=== PATIENT | female | born 1960 | race Asian ===

== ENCOUNTER → 2018-04-07 07:26 | Outpatient (CLI) | payer OTHER, SELFPAY ==
[2018-04-07 07:57] LABS: Add Manual Diff / Slide Review NO; Basophils Percent Auto 0.6 % (0-2); Eosinophils Percent Auto 1.1 % (2-4); Hematocrit 38.1 % (36-46); Hemoglobin 12.1 g/dL (12.0-16.0); Lymphocytes Percent Auto 40.9 % (25-40); Mean Corpuscular HGB Conc 31.8 % (30-36); Mean Corpuscular Hemoglobin 21.6 PG (26-34); Mean Corpuscular Volume 67.9 fL (80-100); Monocytes Percent Auto 9.7 % (3-14); Neutrophils Absolute Auto 2300 /uL (3000-5900); Neutrophils Percent Auto 47.7 % (50-75); Platelet Count 332 X10^3/uL (150-400); Red Blood Cell Count 5.61 X10^6/uL (4.0-5.2); Red Cell Distribution Width 14.7 % (11.6-14.8); White Blood Cell Count 4.8 X10^3/uL (4.5-11.0)
[2018-04-07 08:17] LABS: Microcytosis 1+; Ovalocytes 1+
[2018-04-07 08:55] LABS: Alanine Aminotransferase 39 IU/L (9-52); Albumin 4.5 g/dL (3.5-5.0); Albumin Globulin Ratio 1.5 (1.0-2.8); Alkaline Phosphatase 88 U/L (38-126); Aspartate Aminotransferase 30 IU/L (14-36); Bilirubin Total 0.6 mg/dL (0.2-1.3); Blood Urea Nitrogen 12 mg/dL (7-17); Calcium 9.9 mg/dL (8.4-10.2); Carbon Dioxide 28 mmol/L (22-32); Chloride 99 mmol/L (98-107); Cholesterol 247 mg/dL (140-199); Estimated Glomerular Filt Rate > 60.0 mL/min (>60); Globulin 3.1 g/dL (1.7-4.1); Glucose 98 mg/dL (70-100); HDL Cholesterol 62 mg/dL (40-60); HEMOLYSIS < 15 (0-50); LDL Cholesterol Calculated 170 mg/dL (<100); Potassium 4.5 mmol/L (3.4-5.1); Sodium 140 mmol/L (137-145); Total Protein 7.6 g/dL (6.3-8.2); Triglycerides 74 mg/dL (35-150)
== END ==
PROVIDERS: PCP Family Medicine; Visit Provider Family Medicine
DX: E78.5 Hyperlipidemia, unspecified (principal); Z13.220 Encounter for screening for lipoid disorders; D64.9 Anemia, unspecified
CPT/HCPCS: 36415; 80053; 80061; 85025

== ENCOUNTER → 2019-03-21 07:39 | Outpatient (CLI) | payer OTHER, SELFPAY ==
--- NOTE | 2019-03-21 | DI.MG.S_ITS ---
BILATERAL DIGITAL SCREENING MAMMOGRAM 3D/2D WITH CAD: 03/21/2019 CLINICAL: Routine screening. Comparison is made to exams dated: 11/30/2017 mammogram, 09/24/2016 mammogram, 09/04/2015 mammogram, 12/16/2014 mammogram, and 12/10/2013 mammogram - [facility]. The tissue of both breasts is heterogeneously dense. This may lower the sensitivity of mammography. Current study was also evaluated with a Computer Aided Detection (CAD) system. No significant masses, calcifications, or other findings are seen in either breast. There has been no significant interval change. IMPRESSION: NEGATIVE There is no mammographic evidence of malignancy. A 1 year screening mammogram is recommended. This exam was interpreted at Station ID: [id number]. NOTE: For mammograms, a report in lay terms will be sent to the patient. Approximately 15% of breast malignancies will not be visualized mammographically. In the management of a palpable breast mass, a negative mammogram must not discourage biopsy of a clinically suspicious lesion. Electronically Signed By: Justin herrera/michelle:03/23/2019 13:25:28 letter sent: Normal Exam ACR BI-RADS Category 1: Negative 3341F
[2019-03-21 10:18] LABS: Basophils Absolute Auto 100 /uL (0-100); Eosinophils Absolute Auto 100 /uL (0-450); Eosinophils Percent Auto 1.1 % (2-4); Hematocrit 40.1 % (36-46); Hemoglobin 12.4 g/dL (12.0-16.0); Lymphocytes Absolute Auto 2100 /uL (1100-4500); Lymphocytes Percent Auto 39.6 % (25-40); Mean Corpuscular HGB Conc 30.8 % (30-36); Mean Corpuscular Hemoglobin 21.1 PG (26-34); Mean Corpuscular Volume 68.4 fL (80-100); Monocytes Absolute Auto 500 /uL (0-900); Monocytes Percent Auto 9.3 % (3-14); Neutrophils Absolute Auto 2600 /uL (1500-7000); Platelet Count 325 X10^3/uL (150-400); Red Blood Cell Count 5.86 X10^6/uL (4.0-5.2); Red Cell Distribution Width 14.9 % (11.6-14.8); White Blood Cell Count 5.2 X10^3/uL (4.5-11.0)
[2019-03-21 10:50] LABS: Alanine Aminotransferase 29 IU/L (9-52); Albumin 4.5 g/dL (3.5-5.0); Albumin Globulin Ratio 1.5 (1.0-2.8); Alkaline Phosphatase 83 U/L (38-126); Aspartate Aminotransferase 28 IU/L (14-36); Bilirubin Total 0.7 mg/dL (0.2-1.3); Blood Urea Nitrogen 15 mg/dL (7-17); Calcium 9.7 mg/dL (8.4-10.2); Carbon Dioxide 31 mmol/L (22-32); Chloride 104 mmol/L (98-107); Cholesterol 223 mg/dL (140-199); Estimated Glomerular Filt Rate > 60.0 mL/min (>60); Glucose 93 mg/dL (70-100); HDL Cholesterol 59 mg/dL (40-60); HEMOLYSIS < 15 (0-50); LDL Cholesterol Calculated 150 mg/dL (<100); Potassium 4.4 mmol/L (3.4-5.1); Sodium 142 mmol/L (137-145); Total Protein 7.5 g/dL (6.3-8.2); Triglycerides 70 mg/dL (35-150)
[2019-03-21 10:58] LABS: Add Manual Diff / Slide Review SLIDE REVIEW
[2019-03-21 11:46] LABS: Hypochromasia 2+; Microcytosis 1+
== END ==
PROVIDERS: PCP Hospitalist; Visit Provider Hospitalist
DX: Z12.31 Encounter for screening mammogram for malignant neoplasm of breast (principal); E78.00 Pure hypercholesterolemia, unspecified
CPT/HCPCS: 36415; 77063; 77067; 80053; 80061; 85025

== ENCOUNTER → 2019-11-12 09:20 | Outpatient (CLI) | payer OTHER, SELFPAY ==
[2019-11-12 10:24] LABS: Cholesterol 245 mg/dL (140-199); HDL Cholesterol 51 mg/dL (40-60); LDL Cholesterol Calculated 182 mg/dL (<100); Triglycerides 60 mg/dL (35-150)
== END ==
PROVIDERS: PCP Hospitalist; Referring Provider Family Medicine; Visit Provider Family Medicine
DX: E78.00 Pure hypercholesterolemia, unspecified (principal); Z76.89 Persons encountering health services in other specified circumstances
CPT/HCPCS: 36415; 80061

== ENCOUNTER → 2020-05-02 13:39 | Outpatient (CLI) | payer OTHER, SELFPAY ==
--- NOTE | 2020-05-02 | DI.MG.S_ITS ---
BILATERAL DIGITAL SCREENING MAMMOGRAM 3D/2D WITH CAD: 05/02/2020 CLINICAL: Routine screening. Comparison is made to exams dated: 03/21/2019 mammogram, 11/30/2017 mammogram, and 09/24/2016 mammogram - [facility]. The tissue of both breasts is heterogeneously dense. This may lower the sensitivity of mammography. Current study was also evaluated with a Computer Aided Detection (CAD) system. There is a possible 9 mm mass in the right breast at 6 o'clock anterior depth. This is increased in size. No other significant masses, calcifications, or other findings are seen in either breast. IMPRESSION: INCOMPLETE: NEEDS ADDITIONAL IMAGING EVALUATION The possible 9 mm mass in the right breast is indeterminate. Additional views with possible ultrasound are recommended. This exam was interpreted at Station ID: [id number]. NOTE: For mammograms, a report in lay terms will be sent to the patient. Approximately 15% of breast malignancies will not be visualized mammographically. In the management of a palpable breast mass, a negative mammogram must not discourage biopsy of a clinically suspicious lesion. Electronically Signed By: Robert trejo/michelle:05/02/2020 15:22:00 letter sent: Additional Imaging Needed ACR BI-RADS Category 0: Incomplete 3340F
== END ==
PROVIDERS: PCP Family Medicine; Referring Provider Family Medicine; Visit Provider Family Medicine
DX: Z12.31 Encounter for screening mammogram for malignant neoplasm of breast (principal)
CPT/HCPCS: 77063; 77067

== ENCOUNTER → 2020-05-30 13:49 | Outpatient (CLI) | payer OTHER, SELFPAY ==
--- NOTE | 2020-05-30 13:57 | DI.MG.S_ITS ---
Patient Name: KG IXAO date: 1960 Sex: F Attending Physician: Ilya Indications: Date: 05/30/2020 13:55 At the request of: TINA MENA Procedure: MM special view RT UNILATERAL RIGHT DIGITAL DIAGNOSTIC MAMMOGRAM 3D/2D WITH ADDITIONAL VIEWS: 05/30/2020 CLINICAL: Additional evaluation requested from prior study. Comparison is made to exams dated: 05/02/2020 mammogram, 03/21/2019 mammogram, and 11/30/2017 mammogram - [facility]. The tissue of right breast is heterogeneously dense. This may lower the sensitivity of mammography. The previously described possible 0.8 cm oval equal density mass in the right breast at 6 o'clock anterior depth is seen in additional views. This is not significantly changed from recent screening mammogram but appears slightly more conspicuous compared to previous years. No other significant masses or calcifications are seen in the breast. IMPRESSION: INCOMPLETE: NEEDS ADDITIONAL IMAGING EVALUATION The 0.8 cm oval equal density mass in the right breast is indeterminate. An ultrasound is recommended for further evaluation and is scheduled to immediately follow this study. This exam was interpreted at Station ID: [id number]. NOTE: For mammograms, a report in lay terms will be sent to the patient. Approximately 15% of breast malignancies will not be visualized mammographically. In the management of a palpable breast mass, a negative mammogram must not discourage biopsy of a clinically suspicious lesion. Electronically Signed By: Donald Villalobos M.D. aty/:05/30/2020 14:09:41 Continued Report - Page 2 of 2 Patient Name: KG XIAO date: 1960 Sex: F Attending Physician: Ilya Indications: Date: 05/30/2020 13:55 At the request of: TINA MENA Procedure: MM special view RT ACR BI-RADS Category 0: Incomplete 3340F
--- NOTE | 2020-05-30 14:16 | DI.MG.S_ITS ---
Patient Name: KG XIAO date: 1960 Sex: F Attending Physician: Ilya Indications: Date: 05/30/2020 14:25 At the request of: TINA MENA Procedure: US breast RT limited ULTRASOUND OF RIGHT BREAST: 05/30/2020 CLINICAL: Patient returns today to evaluate a density in the right breast. Comparison is made to exams dated: 05/30/2020 mammogram, 05/02/2020 mammogram, 03/21/2019 mammogram, 11/30/2017 mammogram, 09/24/2016 mammogram, and 09/04/2015 mammogram - [facility]. Color flow and real-time ultrasound of the right breast were performed. Gandhi scale images of the realtime examination were reviewed. There is a benign 1.8 cm x 0.8 cm x 0.6 cm oval cyst in the right breast at 5 o'clock anterior depth. This oval cyst is anechoic with posterior acoustic enhancement. This correlates with mammography findings. Color flow imaging demonstrates that there is no vascularity present. IMPRESSION: BENIGN There is no sonographic evidence of malignancy. The 1.8 cm x 0.8 cm x 0.6 cm oval simple cyst in the right breast is benign. A 1 year screening mammogram is recommended. Findings and recommendations were conveyed to the patient during today's visit. This exam was interpreted at Station ID: [id number]. Electronically Signed By: Donald Villalobos M.D. aty/:05/30/2020 14:35:23 Continued Report - Page 2 of 2 Patient Name: KG XIAO date: 1960 Sex: F Attending Physician: Ilya Indications: Date: 05/30/2020 14:25 At the request of: TINA MENA Procedure: US breast RT limited letter sent: Normal Exam Ultrasound BI-RADS: 2 Benign
--- NOTE | 2020-06-30 14:16 | DI.ECHO.S_ITS ---
Patient Name: KG XIAO date: 1960 Sex: F Attending Physician: Ilya Indications: Date: 05/30/2020 14:25 At the request of: TINA MENA Procedure: US breast RT limited ULTRASOUND OF RIGHT BREAST: 05/30/2020 CLINICAL: Patient returns today to evaluate a density in the right breast. Comparison is made to exams dated: 05/30/2020 mammogram, 05/02/2020 mammogram, 03/21/2019 mammogram, 11/30/2017 mammogram, 09/24/2016 mammogram, and 09/04/2015 mammogram - [facility]. Color flow and real-time ultrasound of the right breast were performed. Gandhi scale images of the realtime examination were reviewed. There is a benign 1.8 cm x 0.8 cm x 0.6 cm oval cyst in the right breast at 5 o'clock anterior depth. This oval cyst is anechoic with posterior acoustic enhancement. This correlates with mammography findings. Color flow imaging demonstrates that there is no vascularity present. IMPRESSION: BENIGN There is no sonographic evidence of malignancy. The 1.8 cm x 0.8 cm x 0.6 cm oval simple cyst in the right breast is benign. A 1 year screening mammogram is recommended. Findings and recommendations were conveyed to the patient during today's visit. This exam was interpreted at Station ID: [id number]. Electronically Signed By: Donald Villalobos M.D. aty/:05/30/2020 14:35:23 Continued Report - Page 2 of 2 Patient Name: KG XIAO date: 1960 Sex: F Attending Physician: Ilya Indications: Date: 05/30/2020 14:25 At the request of: TINA MENA Procedure: US breast RT limited letter sent: Normal Exam Ultrasound BI-RADS: 2 Benign
== END ==
PROVIDERS: PCP Family Medicine; Referring Provider Family Medicine; Visit Provider Family Medicine
DX: R92.8 Other abnormal and inconclusive findings on diagnostic imaging of breast (principal); N60.01 Solitary cyst of right breast
CPT/HCPCS: 76642; 77065; G0279

== ENCOUNTER → 2020-07-02 16:09 | Outpatient (CLI) | payer OTHER, SELFPAY ==
[2020-07-02 16:38] LABS: Add Manual Diff / Slide Review NO; Basophils Absolute Auto 100 /uL (0-100); Basophils Percent Auto 0.8 % (0-2); Eosinophils Absolute Auto 100 /uL (0-450); Eosinophils Percent Auto 1.8 % (2-4); Hematocrit 37.3 % (36-46); Hemoglobin 11.6 g/dL (12.0-16.0); Lymphocytes Absolute Auto 2900 /uL (1100-4500); Lymphocytes Percent Auto 44.3 % (25-40); Mean Corpuscular HGB Conc 31.2 % (30-36); Mean Corpuscular Hemoglobin 21.5 PG (26-34); Monocytes Absolute Auto 700 /uL (0-900); Monocytes Percent Auto 10.2 % (3-14); Neutrophils Absolute Auto 2800 /uL (1500-7000); Neutrophils Percent Auto 42.9 % (50-75); Platelet Count 305 X10^3/uL (150-400); Red Cell Distribution Width 14.9 % (11.6-14.8); White Blood Cell Count 6.4 X10^3/uL (4.5-11.0)
[2020-07-02 16:57] LABS: HEMOLYSIS < 15 (0-50); Iron 99 ug/dL (37-170)
[2020-07-02 17:08] LABS: Hypochromasia 1+; Microcytosis 1+; Percent Iron Saturation 28 % (15-50); Total Iron Binding Capacity 351 ug/dL (265-497); Transferrin 287 mg/dL (206-381)
[2020-07-02 17:48] LABS: Vitamin B12 805 pg/mL (239-931)
== END ==
PROVIDERS: PCP Family Medicine; Referring Provider Family Medicine; Visit Provider Family Medicine
DX: D56.3 Thalassemia minor (principal); E78.5 Hyperlipidemia, unspecified
CPT/HCPCS: 36415; 82607; 83540; 83550; 85025

== ENCOUNTER 2020-09-30 14:30 | Outpatient (RCR) | payer OTHER, SELFPAY ==
--- NOTE | 2020-09-16 15:52 | PT.OIE ---
Current Diagnoses Bicipital tendinitis, left shoulder (09/16/20) Past Medical History (Last Updated 08/01/20 @ 16:33 by John Caraballo DO) Alpha thalassemia trait Bicipital tendinitis of left shoulder History of endometrial biopsy (2014) Hyperlipidemia Hyperlipidemia Past Surgical History (Last Reviewed 10/10/19 @ 16:36 by John Caraballo DO) Anesthesia Status post delivery Visit Care Team Role Provider Type John Caraballo DO Attending Provider Physician Family Provider Primary Care Provider Referring Provider Specialty: [facility] Address: [address] [place] [address] Email: [email or web address] Physical Therapy Initial Evaluation PT-OP-A Visit Information Start: 09/16/20 07:39 Freq: Status: Active Protocol: Document 09/16/20 13:30 AMB (Rec: 09/16/20 15:59 AMB [email or web address]) Out-Patient Physical Therapy Visit Information Visit Information Visit Type Initial Evaluation Visit Start Time 13:30 Visit Stop Time 14:15 Total Visit Minutes 45 Visit Number 1 PT-OP-B Current Condition Start: 09/16/20 07:39 Freq: Status: Active Protocol: Document 09/16/20 13:31 AMB (Rec: 09/16/20 14:24 AMB [id number]) Current Condition History of Current Condition Onset Date 2 months ago Current Complaints L shoulder and neck pain/ tingling History of Current Condition Thu reports increased pain after repeatedly lifting 10# at work at [employer]. She states the pain is the worst with working, lifting things into the boxes at work. She denies pain with sleeping, turning the head, or ADLs. She is left hand dominant, so she has had to change the way she works due to the pain. Describes the pain as tingling in nature. Prior Functional Status Baseline Function- ADL's Independent Baseline Function- Mobility Independent Current Functional Impairments (Reported) Functional Limitations- ADL's Denies pain with ADLs, reports pain at work with repeated lifting Personal Factors Other Personal Factors That May Effect Low back pain Therapy/Recovery PT-OP-C Subjective Start: 09/16/20 07:39 Freq: Status: Active Protocol: Document 09/17/20 08:07 AMB (Rec: 09/17/20 08:15 AMB [email or web address]) Patient Questionnaires Quick Dash- Upper Extremity Quick Dash UE Score 30 Quick Dash UE Impairment 20 to 39% Impaired (Score 20- 39) OP-PT Pain Assessment Comments Pain Comments 3/10 described as tingling from L sided neck down into elbow PT-OP-J Posture/Palpation/Skin Start: 09/16/20 07:39 Freq: Status: Active Protocol: Document 09/17/20 08:07 AMB (Rec: 09/17/20 08:15 AMB [email or web address]) Palpation Assessment Location One Palpation Location L shoulder neck Palpation Details UT/levator scap tight and tender, tenderness goes into lateral deltoid PT-OP-K Range of Motion Start: 09/16/20 07:39 Freq: Status: Active Protocol: Document 09/16/20 13:30 AMB (Rec: 09/17/20 11:01 AMB [id number]) Cervical Spine Range of Motion Cervical Spine Active Degrees Testing Position Sitting Flexion 50 Extension 60 Rotation Left 60 Rotation Right 80 Shoulder Goniometric Range of Motion Shoulder Left Active Testing Position Sitting Flexion 150 Abduction 150 PT-OP-L Special Tests Start: 09/16/20 07:39 Freq: Status: Active Protocol: Document 09/16/20 13:30 AMB (Rec: 09/17/20 11:01 AMB [id number]) Special Tests Shoulder Special Tests Granados Fabian Impingement Test Results positive Empty Can Test Results negative PT-OP-M Strength Start: 09/16/20 07:39 Freq: Status: Active Protocol: Document 09/16/20 13:30 AMB (Rec: 09/17/20 11:01 AMB [id number]) Shoulder Strength Shoulder Manual Muscle Testing Left Flexion 4+ Good+ Extension 4+ Good+ Abduction (C5) 4+ Good+ External Rotation 4 Good Internal Rotation 4 Good Comments pain with ER and IR Hand Head Charger/Pinch Strength Hand Dominance Hand Dominance Left Hand Strength Right Head Charger (lbs) 58 Left Head Charger (lbs) 55 PT-OP-T Assessment and Plan Start: 09/16/20 07:39 Freq: Status: Active Protocol: Document 09/16/20 13:30 AMB (Rec: 09/17/20 11:57 AMB [email or web address]) Physical Therapy Assessment Rehab Potential Rehabilitation Potential Good Evaluation Complexity Number of Personal Factors/Comorbidities 0 Number of Body Systems Impaired 4 or More Clinical Presentation at Evaluation Stable Impairments Impairments Functional Activities,Pain,ROM ,Strength Goals Two Impairment Strength Short Term Goal (STG) Thu will increase her shoulder strength to 5/5 without an increase in baseline pain. STG Duration 4 weeks Mcc Goal (LTG) Thu will improve her shoulder strength so she can lift 10# without pain. LTG Duration 8 weeks One Impairment Pain Short Term Goal (STG) Thu will report 1/10 pain after a full work day. STG Duration 4 weeks Taxonomist Goal (LTG) Thu will be independent and consistent with a HEP to improve her shoulder/neck mobility and strength. LTG Duration 8 weeks Assessment Summary Assessment Thu is reporting tingling pain from her neck to her elbow on the left with lifting at work. We were not able to reproduce her pain with any cervical assessment, but shoulder assessment did increase her pain. She will benefit from both manual therapy and a stretching and strengthening program so that she can do her very repetetive job without pain. Physical Therapy Plan Frequency and Duration Frequency of Treatment 2x/Week Duration of Treatment 8 weeks Plan of Care Start Date 09/16/20 Plan of Care End Date 11/11/20 Therapeutic Interventions Therapeutic Interventions Home Exercise Program,Manual Therapy,Neuromuscular Re- education,Self-Care/Home Management,Taping,Therapeutic Activities,Therapeutic Exercises Modalities Cold Pack/Ice Massage,Electric Stimulation,Hot Packs, Ultrasound Next Visit Focus/Plan Next Note Type Treatment Note Next Visit Plan Recheck taping, establish HEP
--- NOTE | 2020-09-16 15:53 | PT.OPPOC ---
Physical, Occupational & Speech Therapy At [facility] Current Diagnoses Bicipital tendinitis, left shoulder (09/16/20) Visit Care Team Role Provider Type John Caraballo DO Attending Provider Physician Family Provider Primary Care Provider Referring Provider Specialty: Family Practice Address: [address] [place] [address] Email: [email or web address] Plan Of Care PT-OP-T Assessment and Plan Start: 09/16/20 07:39 Freq: Status: Active Protocol: Document 09/16/20 13:30 AMB (Rec: 09/17/20 11:57 AMB [email or web address]) Physical Therapy Assessment Rehab Potential Rehabilitation Potential Good Evaluation Complexity Number of Personal Factors/Comorbidities 0 Number of Body Systems Impaired 4 or More Clinical Presentation at Evaluation Stable Impairments Impairments Functional Activities,Pain,ROM ,Strength Goals Two Impairment Strength Short Term Goal (STG) Thu will increase her shoulder strength to 5/5 without an increase in baseline pain. STG Duration 4 weeks Machine Design Engineer Goal (LTG) Thu will improve her shoulder strength so she can lift 10# without pain. LTG Duration 8 weeks One Impairment Pain Short Term Goal (STG) Thu will report 1/10 pain after a full work day. STG Duration 4 weeks Nursing Home Goal (LTG) Thu will be independent and consistent with a HEP to improve her shoulder/neck mobility and strength. LTG Duration 8 weeks Assessment Summary Assessment Thu is reporting tingling pain from her neck to her elbow on the left with lifting at work. We were not able to reproduce her pain with any cervical assessment, but shoulder assessment did increase her pain. She will benefit from both manual therapy and a stretching and strengthening program so that she can do her very repetetive job without pain. Physical Therapy Plan Frequency and Duration Frequency of Treatment 2x/Week Duration of Treatment 8 weeks Plan of Care Start Date 09/16/20 Plan of Care End Date 11/11/20 Therapeutic Interventions Therapeutic Interventions Home Exercise Program,Manual Therapy,Neuromuscular Re- education,Self-Care/Home Management,Taping,Therapeutic Activities,Therapeutic Exercises Modalities Cold Pack/Ice Massage,Electric Stimulation,Hot Packs, Ultrasound Next Visit Focus/Plan Next Note Type Treatment Note Next Visit Plan Recheck taping, establish HEP Plan of Care Dates Plan of Care Start Date 09/16/20 Plan of Care End Date 11/11/20 Electronically Signed by: Agatha López, NOE 09/17/20 [id number] Please Sign and Return: I have reviewed this Plan of Care and certify that the skilled therapy services above are required to meet the patient?s needs. Physician Signature Date Printed Name and Credentials Clinical Instructor Signature Printed Name and Credentials
--- NOTE | 2020-09-23 15:31 | PT.OTN ---
Current Diagnoses Bicipital tendinitis, left shoulder (09/23/20) Physical Therapy Treatment Note PT-OP-A Visit Information Start: 09/16/20 07:39 Freq: Status: Active Protocol: Document 09/23/20 14:14 AMB (Rec: 09/23/20 15:06 AMB [id number]) Out-Patient Physical Therapy Visit Information Visit Information Visit Type Treatment Note Visit Start Time 14:15 Visit Stop Time 15:00 Total Visit Minutes 45 Visit Number 2 PT-OP-B Current Condition Start: 09/16/20 07:39 Freq: Status: Active Protocol: Document 09/16/20 13:31 AMB (Rec: 09/16/20 14:24 AMB [id number]) Current Condition History of Current Condition Onset Date 2 months ago Current Complaints L shoulder and neck pain/ tingling History of Current Condition Thu reports increased pain after repeatedly lifting 10# at work at [employer]. She states the pain is the worst with working, lifting things into the boxes at work. She denies pain with sleeping, turning the head, or ADLs. She is left hand dominant, so she has had to change the way she works due to the pain. Describes the pain as tingling in nature. Prior Functional Status Baseline Function- ADL's Independent Baseline Function- Mobility Independent Current Functional Impairments (Reported) Functional Limitations- ADL's Denies pain with ADLs, reports pain at work with repeated lifting Personal Factors Other Personal Factors That May Effect Low back pain Therapy/Recovery PT-OP-C Subjective Start: 09/16/20 07:39 Freq: Status: Active Protocol: Document 09/23/20 14:14 AMB (Rec: 09/23/20 15:06 AMB [id number]) OP-PT Subjective Patient Comments Patient Comments Pt, at the end of the appt voiced concern, over if insurance would pay for PT. After looking into this, pt has not met her $3,000 deductible yet. Extensive education on what a deductible is, and pt is concerned about getting a bill. Educated pt that she can ask for a payment program from the hospital, and that she should contact her insurance company to find out how much she might have to pay. Pt may end up cancelling some of her appointments due to financial concerns. PT-OP-J Posture/Palpation/Skin Start: 09/16/20 07:39 Freq: Status: Active Protocol: Document 09/17/20 08:07 AMB (Rec: 09/17/20 08:15 AMB [email or web address]) Palpation Assessment Location One Palpation Location L shoulder neck Palpation Details UT/levator scap tight and tender, tenderness goes into lateral deltoid PT-OP-K Range of Motion Start: 09/16/20 07:39 Freq: Status: Active Protocol: Document 09/16/20 13:30 AMB (Rec: 09/17/20 11:01 AMB [id number]) Cervical Spine Range of Motion Cervical Spine Active Degrees Testing Position Sitting Flexion 50 Extension 60 Rotation Left 60 Rotation Right 80 Shoulder Goniometric Range of Motion Shoulder Left Active Testing Position Sitting Flexion 150 Abduction 150 PT-OP-L Special Tests Start: 09/16/20 07:39 Freq: Status: Active Protocol: Document 09/16/20 13:30 AMB (Rec: 09/17/20 11:01 AMB [id number]) Special Tests Shoulder Special Tests Granados Fabian Impingement Test Results positive Empty Can Test Results negative PT-OP-M Strength Start: 09/16/20 07:39 Freq: Status: Active Protocol: Document 09/16/20 13:30 AMB (Rec: 09/17/20 11:01 AMB [id number]) Shoulder Strength Shoulder Manual Muscle Testing Left Flexion 4+ Good+ Extension 4+ Good+ Abduction (C5) 4+ Good+ External Rotation 4 Good Internal Rotation 4 Good Comments pain with ER and IR Hand Silk Conditioner/Pinch Strength Hand Dominance Hand Dominance Left Hand Strength Right Silk Conditioner (lbs) 58 Left Silk Conditioner (lbs) 55 PT-OP-Q Treatments Start: 09/16/20 07:39 Freq: Status: Active Protocol: Document 09/23/20 14:14 AMB (Rec: 09/23/20 15:22 AMB [email or web address]) Therapeutic Exercises Supine Exercises 4 Supine Exercise Name 3-way bicep curl AROM Reps/Minutes 10 3 Supine Exercise Name upper trap stretch Reps/Minutes 30x2 2 Supine Exercise Name IR isometric Reps/Minutes 5x5 1 Supine Exercise Name isometrics at 90 degrees flexion Reps/Minutes 3 min Comments flex,ext, horiz abd, add Sidelying Exercises 2 Sidelying Exercise Name ER AROM Reps/Minutes 10 1 Sidelying Exercise Name abduction AROM Reps/Minutes 10 Comments to 45 degrees only Manual Therapy Treatment Soft Tissue Mobilization 1 Body Location L shoulder Mobilization Type Cross-Friction,Myofascial Release,Sustained Pressure Body Position Hooklying Comments supra and infraspinatus, anterior deltoid, proximal biceps Manual Traction Cervical Body Position Hooklying Reps/Duration 10 min PT-OP-R Modalities Start: 09/16/20 07:39 Freq: Status: Active Protocol: Document 09/23/20 14:14 AMB (Rec: 09/23/20 15:22 AMB [email or web address]) Hot Pack/Cold Pack Treatment Cold Pack Location L shoulder Patient Position Hooklying Treatment Duration (minutes) 10 PT-OP-T Assessment and Plan Start: 09/16/20 07:39 Freq: Status: Active Protocol: Document 09/23/20 14:14 AMB (Rec: 09/23/20 15:15 AMB [email or web address]) Physical Therapy Assessment Goals Two Impairment Strength Short Term Goal (STG) Thu will increase her shoulder strength to 5/5 without an increase in baseline pain. STG Duration 4 weeks Fpc Goal (LTG) Thu will improve her shoulder strength so she can lift 10# without pain. LTG Duration 8 weeks One Impairment Pain Short Term Goal (STG) Thu will report 1/10 pain after a full work day. STG Duration 4 weeks It Operations Analyst Goal (LTG) Thu will be independent and consistent with a HEP to improve her shoulder/neck mobility and strength. LTG Duration 8 weeks Assessment Summary Assessment Thu continues to not have sx with neck despite describing numbness/tingling in UT area. She does have pain with even gentle shoulder work, so started her with stretching and isometrics. Will need to review to make sure her form is good. Check in with her financial concerns , as she might need to decrease the frequency of her treatment due to financial concerns. Physical Therapy Plan Next Visit Focus/Plan Next Visit Plan Recheck isometrics and stretching HEP
--- NOTE | 2020-09-30 15:25 | PT.OTN ---
Current Diagnoses Bicipital tendinitis, left shoulder (09/30/20) Physical Therapy Treatment Note PT-OP-A Visit Information Start: 09/16/20 07:39 Freq: Status: Active Protocol: Document 09/30/20 14:32 SP (Rec: 09/30/20 16:01 SP [id number]) Out-Patient Physical Therapy Visit Information Visit Information Visit Type Treatment Note Visit Start Time 14:32 Visit Stop Time 15:25 Total Visit Minutes 53 Visit Number 3 Number of PASSENGER SERVICE SUPERVISOR Visits 1 PT-OP-B Current Condition Start: 09/16/20 07:39 Freq: Status: Active Protocol: Document 09/16/20 13:31 AMB (Rec: 09/16/20 14:24 AMB [id number]) Current Condition History of Current Condition Onset Date 2 months ago Current Complaints L shoulder and neck pain/ tingling History of Current Condition Thu reports increased pain after repeatedly lifting 10# at work at [employer]. She states the pain is the worst with working, lifting things into the boxes at work. She denies pain with sleeping, turning the head, or ADLs. She is left hand dominant, so she has had to change the way she works due to the pain. Describes the pain as tingling in nature. Prior Functional Status Baseline Function- ADL's Independent Baseline Function- Mobility Independent Current Functional Impairments (Reported) Functional Limitations- ADL's Denies pain with ADLs, reports pain at work with repeated lifting Personal Factors Other Personal Factors That May Effect Low back pain Therapy/Recovery PT-OP-C Subjective Start: 09/16/20 07:39 Freq: Status: Active Protocol: Document 09/30/20 14:32 SP (Rec: 09/30/20 16:01 SP [id number]) OP-PT Subjective Patient Comments Patient Comments Pt stated did reallly well after last tx, and tried to continue at home: stand abd arm circles, reach ABD OH and reach side bend. Pt stated has been icing her L shld when needed. Return to work tomorrow, does alot fast paced shld ER and hoping doesn't hurt more. Patient Reported Progress Improving PT-OP-J Posture/Palpation/Skin Start: 09/16/20 07:39 Freq: Status: Active Protocol: Document 09/17/20 08:07 AMB (Rec: 09/17/20 08:15 AMB [id number]) Palpation Assessment Location One Palpation Location L shoulder neck Palpation Details UT/levator scap tight and tender, tenderness goes into lateral deltoid PT-OP-K Range of Motion Start: 09/16/20 07:39 Freq: Status: Active Protocol: Document 09/16/20 13:30 AMB (Rec: 09/17/20 11:01 AMB [id number]) Cervical Spine Range of Motion Cervical Spine Active Degrees Testing Position Sitting Flexion 50 Extension 60 Rotation Left 60 Rotation Right 80 Shoulder Goniometric Range of Motion Shoulder Left Active Testing Position Sitting Flexion 150 Abduction 150 PT-OP-L Special Tests Start: 09/16/20 07:39 Freq: Status: Active Protocol: Document 09/16/20 13:30 AMB (Rec: 09/17/20 11:01 AMB [id number]) Special Tests Shoulder Special Tests Granados Fabian Impingement Test Results positive Empty Can Test Results negative PT-OP-M Strength Start: 09/16/20 07:39 Freq: Status: Active Protocol: Document 09/16/20 13:30 AMB (Rec: 09/17/20 11:01 AMB [id number]) Shoulder Strength Shoulder Manual Muscle Testing Left Flexion 4+ Good+ Extension 4+ Good+ Abduction (C5) 4+ Good+ External Rotation 4 Good Internal Rotation 4 Good Comments pain with ER and IR Hand Damage Cutter/Pinch Strength Hand Dominance Hand Dominance Left Hand Strength Right Damage Cutter (lbs) 58 Left Damage Cutter (lbs) 55 PT-OP-Q Treatments Start: 09/16/20 07:39 Freq: Status: Active Protocol: Document 09/30/20 14:32 SP (Rec: 09/30/20 16:01 SP [id number]) Therapeutic Exercises Supine Exercises 4 Supine Exercise Name 3-way bicep curl AROM Reps/Minutes 10 Comments good tolerance 3 Supine Exercise Name upper trap stretch Reps/Minutes 30x2 Comments supine and (see seated) Sidelying Exercises 2 Sidelying Exercise Name ER AROM Side left Resistance AROM x5, 1# DB x5 Comments cued stacked shld/ hips, scap retraction/depression, oracio ER 1 Sidelying Exercise Name abduction AROM Side left Reps/Minutes 10 Comments to 120 degrees today oracio, cued slow scap stab w/ inf glide Sitting Exercises upper trap, Lev scap stretch Side left Reps/Minutes 30 x2 Comments opposite UE gentle over pressure if good stretch Standing Exercises bicep stretch Side left Resistance AROM Reps/Minutes 20 x2 Comments cued upright posture, arm at side extend wrist and if welcoming shld ext self STMs Lev scap/ middle trap Standing Exercise Name racquetball on wall in sock, theracane MWM Side left Comments good tolerance, very helpful isometric IR, ER, ext, flex at wall Standing Exercise Name HEP review Side left Reps/Minutes 5 sec hold x10 each Comments no pain Manual Therapy Treatment Taping K V taping L shld proximally Body Location L shld Treatment Focus Prox GH Jt stabilization Type of Tape Kinesio Tape Skin Inspection normal, intact Comments good support, last tx lasted 2 -3 day before took off due to itchy and coming off with showers/ clothing rubbing on and wanted reapplied today. PT-OP-R Modalities Start: 09/16/20 07:39 Freq: Status: Active Protocol: Document 09/23/20 14:14 AMB (Rec: 09/23/20 15:22 AMB [email or web address]) Hot Pack/Cold Pack Treatment Cold Pack Location L shoulder Patient Position Hooklying Treatment Duration (minutes) 10 PT-OP-T Assessment and Plan Start: 09/16/20 07:39 Freq: Status: Active Protocol: Document 09/30/20 14:32 SP (Rec: 09/30/20 16:01 SP [id number]) Physical Therapy Assessment Goals Two Impairment Strength Short Term Goal (STG) Thu will increase her shoulder strength to 5/5 without an increase in baseline pain. STG Duration 4 weeks Clinical Esthetician Goal (LTG) Thu will improve her shoulder strength so she can lift 10# without pain. LTG Duration 8 weeks One Impairment Pain Short Term Goal (STG) Thu will report 1/10 pain after a full work day. STG Duration 4 weeks Longterm Goal (LTG) Thu will be independent and consistent with a HEP to improve her shoulder/neck mobility and strength. LTG Duration 8 weeks Assessment Summary Assessment Pt improved in ROM OH since last tx w/ less pain. Pt required cuing for HEP set up and proper form with posture and scap stabilization. PASSENGER SERVICE SUPERVISOR assessed pt's performance of isometrics in standing instead of supine last tx, with good oracio no pain just muscle working. Intiated stretching and self STMs ball at wall and theracane for self decrease trap tightness with good results. Pt did not have any appts with a PT looking forward, PASSENGER SERVICE SUPERVISOR recommended follow up with [place], PT due to deductible is high and usure how many times can afford to attend if needs to continue on own. Insurance rep in rehab will follow up with pt next visit on her responsibility for her awareness. Pt would benefit from further PT to improved decreased pain, increase strength LUE. Physical Therapy Plan Frequency and Duration Frequency of Treatment 2x/Week Duration of Treatment 8 weeks Plan of Care Start Date 09/16/20 Plan of Care End Date 11/11/20 Therapeutic Interventions Therapeutic Interventions Home Exercise Program,Manual Therapy,Neuromuscular Re- education,Self-Care/Home Management,Taping,Therapeutic Activities,Therapeutic Exercises Modalities Cold Pack/Ice Massage,Electric Stimulation,Hot Packs, Ultrasound Next Visit Focus/Plan Next Visit Plan Assess HEP review: supine/side / stand/ stretching, self STMs Continue per PT POC: Recheck isometrics and stretching HEP
--- NOTE | 2020-10-15 16:09 | PT.OPDS ---
Current Diagnoses Bicipital tendinitis, left shoulder (09/30/20) Visit Care Team Role Provider Type John Caraballo DO Attending Provider Physician Family Provider Primary Care Provider Referring Provider Specialty: Family Practice Address: [address] [place] [address], [facility] Email: [email or web address] Visit Number Visit Number 3 Discharge Summary PT-OP-B Current Condition Start: 09/16/20 07:39 Freq: Status: Active Protocol: Document 09/16/20 13:31 AMB (Rec: 09/16/20 14:24 AMB [id number]) Current Condition History of Current Condition Onset Date 2 months ago Current Complaints L shoulder and neck pain/ tingling History of Current Condition Thu reports increased pain after repeatedly lifting 10# at work at [employer]. She states the pain is the worst with working, lifting things into the boxes at work. She denies pain with sleeping, turning the head, or ADLs. She is left hand dominant, so she has had to change the way she works due to the pain. Describes the pain as tingling in nature. Prior Functional Status Baseline Function- ADL's Independent Baseline Function- Mobility Independent Current Functional Impairments (Reported) Functional Limitations- ADL's Denies pain with ADLs, reports pain at work with repeated lifting Personal Factors Other Personal Factors That May Effect Low back pain Therapy/Recovery PT-OP-C Subjective Start: 09/16/20 07:39 Freq: Status: Active Protocol: Document 09/30/20 14:32 SP (Rec: 09/30/20 16:01 SP [id number]) OP-PT Subjective Patient Comments Patient Comments Pt stated did reallly well after last tx, and tried to continue at home: stand abd arm circles, reach ABD OH and reach side bend. Patient Reported Progress Improving PT-OP-J Posture/Palpation/Skin Start: 09/16/20 07:39 Freq: Status: Active Protocol: Document 09/17/20 08:07 AMB (Rec: 09/17/20 08:15 AMB [email or web address]) Palpation Assessment Location One Palpation Location L shoulder neck Palpation Details UT/levator scap tight and tender, tenderness goes into lateral deltoid PT-OP-K Range of Motion Start: 09/16/20 07:39 Freq: Status: Active Protocol: Document 09/16/20 13:30 AMB (Rec: 09/17/20 11:01 AMB [id number]) Cervical Spine Range of Motion Cervical Spine Active Degrees Testing Position Sitting Flexion 50 Extension 60 Rotation Left 60 Rotation Right 80 Shoulder Goniometric Range of Motion Shoulder Left Active Testing Position Sitting Flexion 150 Abduction 150 PT-OP-L Special Tests Start: 09/16/20 07:39 Freq: Status: Active Protocol: Document 09/16/20 13:30 AMB (Rec: 09/17/20 11:01 AMB [id number]) Special Tests Shoulder Special Tests Granados Fabian Impingement Test Results positive Empty Can Test Results negative PT-OP-M Strength Start: 09/16/20 07:39 Freq: Status: Active Protocol: Document 09/16/20 13:30 AMB (Rec: 09/17/20 11:01 AMB [id number]) Shoulder Strength Shoulder Manual Muscle Testing Left Flexion 4+ Good+ Extension 4+ Good+ Abduction (C5) 4+ Good+ External Rotation 4 Good Internal Rotation 4 Good Comments pain with ER and IR Hand Traffic Court Magistrate/Pinch Strength Hand Dominance Hand Dominance Left Hand Strength Right Traffic Court Magistrate (lbs) [address] (lbs) 55 PT-OP-T Assessment and Plan Start: 09/16/20 07:39 Freq: Status: Active Protocol: Document 10/15/20 16:08 AMB (Rec: 10/15/20 16:09 AMB [email or web address]) Physical Therapy Assessment Assessment Summary Assessment Thu called the clinic after her 3rd visit to state that her shoulder was feeling better, however she was significantly concerned about her deductible during treatment, so that could also be playing a role in her wanting to discontinue physical therapy. Physical Therapy Plan Discharge Physical Therapy Discharge Reasons Patient Request
== END 2020-10-23 08:09 ==
LOC: PHYS 14:30
PROVIDERS: Family Provider Family Medicine; PCP Family Medicine; Referring Provider Family Medicine; Visit Provider Family Medicine
DX: M75.22 Bicipital tendinitis, left shoulder (principal)
CPT/HCPCS: 97110; 97140; 97161

== ENCOUNTER → 2020-12-23 15:55 | Outpatient (CLI) | payer OTHER, SELFPAY ==
[2020-12-23] MEDS: COVID-19 VACC #1, MRNA(MOD) 100 MCG/0.5 ML VIAL IM (16:03)
== END ==
PROVIDERS: Family Provider Family Medicine; PCP Family Medicine; Visit Provider Internal Medicine
DX: Z23 Encounter for immunization (principal)
CPT/HCPCS: 0011A; 91301

== ENCOUNTER → 2021-01-08 09:44 | Outpatient (CLI) | payer OTHER, SELFPAY ==
[2021-01-08 11:23] LABS: COVID19 -Nasal RAPID Negative (Negative)
== END ==
PROVIDERS: Family Provider Family Medicine; PCP Family Medicine; Visit Provider Specialist
DX: Z20.822 Contact with and (suspected) exposure to COVID-19 (principal)
CPT/HCPCS: 87635; C9803

== ENCOUNTER 2021-01-09 07:24 | Day surgery (SDC) | payer OTHER, SELFPAY ==
[2021-01-09] VITALS (13 sets, daily range): BP systolic 107–150; BP diastolic 61–82; PULSE 51–68; RESP 12–18; TEMP 36.2–36.7; O2SAT 96–100; BMI 24.7
--- NOTE | 2021-01-09 | PATH_ITS ---
[facility] Accession Number: [id number] . 01 Material submitted: . colon - COLON BIOPSY @15CM . 02 Diagnosis: Colon, 15 cm, Biopsy: Colonic mucosa with patchy surface hyperplastic type changes. Negative for active, chronic and microscopic colitis. Negative for dysplasia and malignancy. [facility] 01/13/2021 1547 Local . 02 Electronically signed: . Germaine Orantes MD, Pathologist NPI- [id number] . 01 Gross description: . COLON BIOPSY @15CM: Received in formalin are 5 fragment(s) of encinas, soft tissue measuring 0.4 x 0.4 x 0.1 cm to 0.2 x 0.1 x 0.1 cm submitted entirely in 1 cassette(s) /QBJ 01/10/2021 0448 Local . 02 Pathologist provided ICD-10: K62.5 . 02 CPT . 536315 Performed at: 01 [facility] [address], [place], [place] [id number] MD Piero Francisco MD Phone: [phone] Performed at: 02 [facility] [address] [place], [place] [id number] MD Germaine Orantes MD Phone: [phone]
[2021-01-09] MEDS: LACTATED RINGERS 1,000 ML 200 ML IV (07:52)
--- NOTE | 2021-01-09 08:09 | PM.PREOP ---
Pre-operative Note COVID-19 COVID-19 status: Negative Result date/Date tested (Pos, Neg/Pending): 01/08/21 Interval Note History & Physical reviewed/Exam performed by Physician: Yes Changes to H&P: No ASA Class (for procedural sedation): I
[2021-01-09] MEDS: fentaNYL 250 MCG/5 ML INJ IV (08:18)
[2021-01-09] MEDS: MIDAZOLAM 5 MG/5 ML VIAL IV (08:18)
--- NOTE | 2021-01-09 08:53 | PM.OP.ENDO ---
Operative Date/Time/Diagnoses Date of procedure: 01/09/21 Time of procedure: 08:53 Pre-op diagnosis: Screening exam. History of rectal bleeding. Post-op diagnosis: same (Two small lesions that may or may not be polypoid. These were removed with biopsy forceps. Three large columns of hemorrhoids which were banded.) Procedure & Clinicians Study performed: Colonoscopy with cold biopsy. Anoscopy with hemorrhoidal banding of 3 columns of hemorrhoids. Same procedure as scheduled: Yes Indications: Rectal bleeding Surgeon: Hilario Blunt Procedure Notes SCOAP/Timeout: Performed Procedure in detail: The patient was placed in the left lateral decubitus position and underwent IV sedation directed by the surgeon consisting of fentanyl and Versed. Digital exam was unremarkable. The scope was inserted and advanced through the rectum into the sigmoid, descending, transverse, and ascending colon. Pressure was applied and the patient was repositioned in order to reach the cecum. The cecum was reached identified by the ileocecal valve and the appendiceal opening. The scope was gradually brought out. No Polyps were found until I reached 15 cm. There were 2 very small raised areas which I biopsied and removed. These may not be neoplastic. . The scope ultimately was retroflexed in the rectum. The appearance was remarkable for large hemorrhoidal columns.. The scope was removed and the patient tolerated the procedure well. The prep was very good. An anoscope was inserted and circumferential exam revealed 3 columns located in the right posterior lateral, right anterior lateral, and left lateral positions. These 3 columns were banded. Patient tolerated the procedure well. Scope withdrawal time: 9min (10 total) Sedation minutes: 32 Findings: internal hemorrhoids (Three columns of hemorrhoids all of which had rubber bands placed to ligate them.) and polyp (Two small possible polyps.) Specimen(s): other (Small polypoid lesions) Complications: none Post-procedure Recommendations: Other recommendation (Depending on the pathology report you should have this repeated in either 5 years or 10 years. We will notify you which is appropriate.) Follow up: weeks (I will see you back in 2 weeks because of the hemorrhoidal banding.)
[2021-01-09] MEDS: SCOPOLAMINE 1 PATCH TOP (10:06)
[2021-01-09] MEDS: PROCHLORPERAZINE 10 MG/2 ML VIAL IV (10:12)
[2021-01-09] MEDS: LACTATED RINGERS 1,000 ML 42 ML IV (10:17)
== END 2021-01-09 10:37 | disposition home or self-care (01) ==
PROVIDERS: Family Provider Family Medicine; PCP Family Medicine; Referring Provider Family Medicine; Visit Provider Specialist
PROC: 0DJD8ZZ Inspection of Lower Intestinal Tract, Via Natural or Artificial Opening Endoscopic (ICD-10-PCS; CPT 45378; principal; 2021-01-09 08:30)
DX: K64.8 Other hemorrhoids (principal); K59.09 Other constipation
CPT/HCPCS: 45380; 46221; 99152; 99153; J0780; J2250; J3010

== ENCOUNTER → 2021-01-21 13:40 | Outpatient (CLI) | payer OTHER, SELFPAY ==
[2021-01-21] MEDS: COVID-19 VACC #2, MRNA(MOD) 100 MCG/0.5 ML VIAL IM (13:51)
== END ==
PROVIDERS: Family Provider Family Medicine; PCP Family Medicine; Visit Provider Internal Medicine
DX: Z23 Encounter for immunization (principal)
CPT/HCPCS: 0012A; 91301

== ENCOUNTER → 2021-05-13 13:38 | Outpatient (CLI) | payer OTHER, SELFPAY ==
--- NOTE | 2021-05-13 13:41 | DI.RAD.S_ITS ---
PROCEDURE: XR SHOULDER LT MIN 2V INDICATIONS: Progressive left shoulder pain TECHNIQUE: 3 views of the shoulder were acquired. COMPARISON: [facility], , CHEST 2 VIEW, 07/11/2007, 17:59. FINDINGS: Bones: No fractures or dislocations. No suspicious bony lesions. Visualized ribs appear intact. Moderate acromioclavicular and glenohumeral joint space narrowing with periarticular osteophyte formation. 2.6 cm sclerotic focus with chondroid matrix involving the proximal humeral metadiaphysis. Adjacent bony cortex is intact and no periosteal reaction or associated soft tissue mass is seen. Soft tissues: Calcification involving the rotator cuff. 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 Calcific tendinitis of the rotator cuff. 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 Dictated by: Kody FORTE Interpreted: Zoraida Howard MD on 05/13/2021 at 14:16 Transcribed by: [place]IS on 05/13/2021 at 14:22 Approved by: Zoraida Howard MD, PhD on 05/13/2021 at 15:18
== END ==
PROVIDERS: Family Provider Family Medicine; PCP Family Medicine; Referring Provider Family Medicine; Visit Provider Family Medicine
DX: M75.32 Calcific tendinitis of left shoulder (principal); M25.512 Pain in left shoulder; M19.012 Primary osteoarthritis, left shoulder
CPT/HCPCS: 73030

== ENCOUNTER → 2021-06-18 08:04 | Outpatient (CLI) | payer OTHER, SELFPAY ==
[2021-06-18 09:39] LABS: Add Manual Diff / Slide Review NO; Basophils Absolute Auto 0 /uL (0-100); Basophils Percent Auto 0.8 % (0-2); Eosinophils Absolute Auto 200 /uL (0-450); Eosinophils Percent Auto 3.3 % (2-4); Hematocrit 37.2 % (36-46); Hemoglobin 11.7 g/dL (12.0-16.0); Lymphocytes Absolute Auto 1900 /uL (1100-4500); Lymphocytes Percent Auto 34.3 % (25-40); Mean Corpuscular HGB Conc 31.4 % (30-36); Mean Corpuscular Hemoglobin 21.4 PG (26-34); Mean Corpuscular Volume 68.2 fL (80-100); Monocytes Absolute Auto 500 /uL (0-900); Monocytes Percent Auto 9.1 % (3-14); Neutrophils Absolute Auto 2900 /uL (1500-7000); Neutrophils Percent Auto 52.5 % (50-75); Platelet Count 290 X10^3/uL (150-400); Red Blood Cell Count 5.45 X10^6/uL (4.0-5.2); White Blood Cell Count 5.5 X10^3/uL (4.5-11.0)
[2021-06-18 09:55] LABS: Microcytosis 1+; Ovalocytes 1+
[2021-06-18 10:18] LABS: Alanine Aminotransferase 27 IU/L (<35); Albumin 4.1 g/dL (3.5-5.0); Albumin Globulin Ratio 1.4 (1.0-2.8); Alkaline Phosphatase 79 U/L (38-126); Aspartate Aminotransferase 34 IU/L (14-36); BUN Creatinine Ratio 15.2 (6-22); Bilirubin Total 0.5 mg/dL (0.2-1.3); Blood Urea Nitrogen 10 mg/dL (7-17); Calcium 9.2 mg/dL (8.4-10.2); Carbon Dioxide 33 mmol/L (22-32); Chloride 102 mmol/L (98-107); Cholesterol 147 mg/dL (140-199); Estimated Glomerular Filt Rate > 60.0 mL/min (>60); Glucose 93 mg/dL (70-100); HDL Cholesterol 63 mg/dL (40-60); HEMOLYSIS < 15 (0-50); LDL Cholesterol Calculated 73 mg/dL (<100); Potassium 4.3 mmol/L (3.4-5.1); Sodium 140 mmol/L (137-145); Total Protein 7.1 g/dL (6.3-8.2); Triglycerides 55 mg/dL (35-150)
[2021-06-18 10:23] LABS: Creatinine Urine Random 46.5 mg/dL
[2021-06-18 10:26] LABS: Microalbumin Urine Random < 0.6 mg/dL (0-1.6)
[2021-06-18 10:47] LABS: TSH w/ Reflex to FT4 2.05 uIU/mL (0.47-4.68)
== END ==
PROVIDERS: Family Provider Family Medicine; PCP Family Medicine; Referring Provider Family Medicine; Visit Provider Family Medicine
DX: E78.5 Hyperlipidemia, unspecified (principal); R03.0 Elevated blood-pressure reading, without diagnosis of hypertension
CPT/HCPCS: 36415; 80053; 80061; 82043; 82570; 84443; 85025

== ENCOUNTER 2021-06-29 16:37 | Emergency (ER) | payer OTHER, SELFPAY ==
[2021-06-29 16:50] VITALS: BP 197/117; PULSE 83; RESP 17; TEMP 36.6; O2SAT 99; BMI 25.2
[2021-06-29 17:38] VITALS: PULSE 62; O2SAT 100
--- NOTE | 2021-06-29 17:40 | ED.GIBLEED ---
HPI - GI Bleed <Herlinda Restrepo PA-C - Last Filed: 06/30/21 12:06> General Chief complaint: GI Bleed Stated complaint: LOTS OF BLOOD WHEN GOING TO THE BATHROOM STOMACH P Time Seen by Provider: 06/29/21 17:21 Source: patient Mode of arrival: Ambulatory History of Present Illness HPI Narrative: 60-year-old female with past medical history hyperlipidemia, internal, rectal bleeding presents to the ED with 2 weeks of rectal bleeding. Patient states she has been having 2-3 small bowel movements daily for the last 2 weeks with some bright red blood around the stool. Patient denies fever, chills, chest pain, shortness of breath, nausea, vomiting, abdominal pain, dysuria, lightheadedness, dizziness, syncope. Patient had a colonoscopy on 01/09/2021 and 2 polyps and some internal hemorrhoids were identified. Internal hemorrhoids were ligated. Related Data Home Medications Medication Instructions Recorded Confirmed atorvastatin 20 mg tablet 20 mg PO BEDTIME 06/29/21 06/29/21 multivitamin with minerals 1 tab PO DAILY 06/29/21 06/29/21 Allergies Allergy/AdvReac Type Severity Reaction Status Date / Time No Known Drug Allergies Allergy Verified 06/29/21 17:19 Review of Systems <Herlinda Restrepo PA-C - Last Filed: 06/30/21 12:06> Constitutional Constitutional: Denies chills, Denies fatigue, Denies fever(s), Denies frequent falls, Denies lethargy and Denies weakness Eyes Eyes: Denies change in vision, Denies eye discharge, Denies irritation and Denies loss of vision ENT Ears, Nose, Mouth, and Throat: Denies change in voice, Denies dizziness, Denies neck pain, Denies sore throat and Denies throat swelling Cardiovascular Cardiovascular: Denies chest pain, Denies irregular heart rhythm, Denies lightheadedness, Denies palpitations, Denies dyspnea, Denies dyspnea on exertion and Denies orthopnea Respiratory Respiratory: Denies cough, Denies dyspnea, Denies dyspnea on exertion and Denies wheezing Gastrointestinal Gastrointestinal: Denies abdominal pain, Reports hematochezia, Denies change in bowel habits, Reports diarrhea, Denies nausea and Denies vomiting Musculoskeletal Musculoskeletal: Denies neck pain and Denies numbness Integumentary/Breasts Skin/Breast: Denies pruritus, Denies erythema, Denies rash and Denies wounds Neurologic Neurologic: Denies behavioral changes, Denies confusion, Denies dizziness, Denies frequent falls, Denies loss of vision, Denies numbness and Denies weakness Psychiatric Psychiatric: Denies anxiety, Denies behavioral changes, Denies confusion, Denies depression, Denies homicidal ideation and Denies suicidal ideation Endocrine Endocrine: Denies fatigue, Denies flushing and Denies palpitations Hematologic/Lymphatic Hematologic/Lymphatic: Denies easy bruising Allergic/Immunologic Allergic/Immunologic: Denies urticaria, Denies throat swelling and Denies wheezing Patient History <Herlinda Restrepo PA-C - Last Filed: 06/30/21 12:06> Medical History Adhesive capsulitis Alpha thalassemia trait Bicipital tendinitis of left shoulder Elevated blood pressure reading without diagnosis of hypertension History of endometrial biopsy (2014) Hyperlipidemia Hyperlipidemia Internal hemorrhoid, bleeding Rectal bleeding Surgical History Anesthesia Status post delivery Family History Brother No problems noted. Brother No problems noted. Father COPD (chronic obstructive pulmonary disease) Mother Leukemia Social History household members: family and children Smoking Status: Never smoker alcohol intake: never substance use type: does not use Smoking Status: Never smoker alcohol intake frequency: other Substance Use Type: does not use Exam <Herlinda Restrepo PA-C - Last Filed: 06/30/21 12:06> Initial Vital Signs Initial Vital Signs: Vital Signs Temperature 97.9 F 06/29/21 16:50 Pulse Rate 83 06/29/21 16:50 Respiratory Rate 17 06/29/21 16:50 Blood Pressure 197/117 H 06/29/21 16:50 Pulse Oximetry 99 06/29/21 16:50 Const General: cooperative HENMT Head: normocephalic and atraumatic Ears: external ears normal and TM's normal bilaterally Nose: external nose normal and No nasal discharge Face and sinus: sinuses nontender, face symmetric, no sinus tenderness and No dry mucous membranes Mouth: oral mucosae normal and moist mucous membranes Teeth and gingiva: dentition normal Throat: tonsils normal and uvula midline Eyes General: appearance normal, both eyes and all related structures Eyelids: eyelids normal Conjunctivae: conjunctivae normal Sclera: sclerae normal Pupils: PERRL EOM: EOM intact bilaterally Neck Neck: normal visual inspection, trachea midline, No lymphadenopathy, No midline deformity and No JVD Lymphatic: No lymphedema Chest Chest: normal inspection of the chest Resp Effort & Inspection: normal respiratory effort, able to speak in complete sentences, no respiratory distress and no use of accessory muscles Auscultation: clear to auscultation bilaterally, no rales, no rhonchi and no wheezes Cardio Rate: regular rate Rhythm: regular rhythm Heart Sounds: no click, no gallops, no murmurs and no rubs Pulses: normal peripheral pulses GI Inspection: non-distended Palpation: soft, no hepatosplenomegaly, No guarding, No pulsatile mass and No tender Auscultation: normal bowel sounds Other: Abdomen is soft, nondistended, nontender to palpation. No CVA tenderness. Back/Spine/Pelvis Back: No CVA tenderness Cervical Spine: cervical ROM normal and No pain with cervical ROM Thoracic/Lumbar Spine: thoracic and lumbar spine normal to inspection Skin General: no rashes or lesions noted, No jaundice and No petechiae Neuro General: patient alert, patient oriented x3, gait normal and no focal motor deficits Speech: speech normal Extrem General: full ROM, no clubbing, cyanosis or edema, no pedal edema and no calf tenderness Psych Appearance: well kempt Mental Status: mental status grossly normal Attitude: cooperative Thought Content: normal and suicidality Judgment: judgment good <Terrell Cox DO - Last Filed: 06/30/21 18:03> Initial Vital Signs Initial Vital Signs: Vital Signs Temperature 97.9 F 06/29/21 16:50 Pulse Rate 83 06/29/21 16:50 Respiratory Rate 17 06/29/21 16:50 Blood Pressure 197/117 H 06/29/21 16:50 Pulse Oximetry 99 06/29/21 16:50 Course <Herlinda Restrepo PA-C - Last Filed: 06/30/21 12:06> Course Course Narrative: Abdomen is still benign on re-examination. Labs and UA within normal limits. Will discharge home with ED return precautions, GI and PCP follow-up. Orders Ordered: ED Orders 06/29/21 17:17 Complete Blood Count AUTO DIFF Stat Comprehensive Metabolic Panel Stat Lactate (Lactic Acid) Stat Lipase Stat Partial Thromboplastin Time Stat Prothrombin Time INR Stat EKG-12 Lead Stat 06/29/21 17:28 Urinalysis and Microscopic Stat 06/29/21 17:29 GI Panel (Film Array) Stat Vital Signs Vital signs: Vital Signs - 8 hr 06/29/21 16:50 Temperature 97.9 F Pulse Rate 83 Respiratory Rate 17 Blood Pressure 197/117 H Pulse Oximetry 99 <Terrell Cox DO - Last Filed: 06/30/21 18:03> Orders Ordered: ED Orders 06/29/21 17:17 Complete Blood Count AUTO DIFF Stat Comprehensive Metabolic Panel Stat Lactate (Lactic Acid) Stat Lipase Stat Partial Thromboplastin Time Stat Prothrombin Time INR Stat EKG-12 Lead Stat 06/29/21 17:28 Urinalysis and Microscopic Stat 06/29/21 17:29 GI Panel (Film Array) Stat Vital Signs Vital signs: Vital Signs - 8 hr 06/29/21 16:50 Temperature 97.9 F Pulse Rate 83 Respiratory Rate 17 Blood Pressure 197/117 H Pulse Oximetry 99 MDM - GI Bleed <Herlinda Restrepo PA-C - Last Filed: 06/30/21 12:06> Lab Data Lab results narrative: Labs, UA within normal limits Result diagrams: 06/29/21 17:40 06/29/21 17:40 Labs: Lab Results 06/29/21 06/29/21 06/29/21 Range/Units 17:25 17:25 17:40 WBC 8.0 (4.5-11.0) X10^3/uL RBC 5.33 H (4.0-5.2) X10^6/uL Hgb 11.5 L (12.0-16.0) g/dL Hct 36.2 (36-46) % MCV 67.9 L (80-100) fL MCH 21.5 L (26-34) PG MCHC 31.7 (30-36) % RDW 14.8 (11.6-14.8) % Plt Count 301 (150-400) X10^3/uL Neut % (Auto) 59.7 (50-75) % Lymph % (Auto) 27.6 (25-40) % Blaine % (Auto) 8.8 (3-14) % Eos % (Auto) 3.0 (2-4) % Baso % (Auto) 0.9 (0-2) % Neut # (Auto) 4800 (6765-2966) /uL Lymph # (Auto) 2200 (6707-4174) /uL Blaine # (Auto) 700 (0-900) /uL Eos # (Auto) 200 (0-450) /uL Baso # (Auto) 100 (0-100) /uL RBC Morphology See below Hypochromasia 1+ H Poikilocytosis 1+ H Anisocytosis 1+ H Microcytosis 1+ H PT (10.1-12.7) SECONDS INR (0.9-1.3) APTT (26.4-36.2) SECONDS Sodium (137-145) mmol/L Potassium (3.4-5.1) mmol/L Chloride (98-107) mmol/L Carbon Dioxide (22-32) mmol/L BUN (7-17) mg/dL Creatinine (0.52-1.04) mg/dL Estimated GFR (>60) mL/min BUN/Creatinine Ratio (6-22) Glucose (70-100) mg/dL Lactate (0.7-2.1) mmol/L Calcium (8.4-10.2) mg/dL Total Bilirubin (0.2-1.3) mg/dL AST (14-36) IU/L ALT (<35) IU/L Alkaline Phosphatase (38-126) U/L Total Protein (6.3-8.2) g/dL Albumin (3.5-5.0) g/dL Globulin (1.7-4.1) g/dL Albumin/Globulin Ratio (1.0-2.8) Lipase (23-300) U/L Urine Color Yellow Urine Appearance Clear Urine pH 7.0 (4.5-8.0) Ur Specific [place] <=1.005 (1.000-1.035) Urine Protein Negative (Negative) Urine Glucose (UA) Negative (Negative) g/dL Urine Ketones Negative (NEGATIVE) Urine Occult Blood Negative (Negative) Urine Nitrate Negative (Negative) Urine Bilirubin Negative (NEGATIVE) Urine Urobilinogen 0.2 (0.2) E.U./dL Ur Leukocyte Esterase 1+ H (NEGATIVE) Urine RBC 0-1/hpf (0-5/HPF) Urine WBC 1-5/hpf (0-5/HPF) Ur Squamous Epith Cells 0-1 /hpf (0-5/HPF) Urine Bacteria Few (2-10) H (None) Ur Culture Indicated? Specimen cultured Stl C. cayetanensis PCR Not detected (Not Detect) Stool Rotavirus (PCR) Not detected (Not Detect) Stool Adenovirus (PCR) Not detected (Not Detect) Stool Astrovirus (PCR) Not detected (Not Detect) Stool Cryptosporidium PCR Not detected (Not Detect) Stl E.coli Shiga Tox PCR Not detected (Not Detect) St Sh/Enteroin Ecoli PCR Not detected (Not Detect) Stool E coli O157 PCR Not Reportable Stl Enterotoxigenic E PCR Not detected (Not Detect) Stool EPEC (PCR) Not detected (Not Detect) Stl E. histolytica PCR Not detected (Not Detect) Stool Giardia Lamblia PCR Not detected (Not Detect) Stool Sapovirus (PCR) Not detected (Not Detect) Stl P. shigelloides PCR Not detected (Not Detect) St Y.enterocolitica PCR Not detected (Not Detect) Stool Vibrio (PCR) Not detected (Not Detect) Stl Vibrio cholerae PCR Not detected (Not Detect) Stl Enteroaggr Ecoli PCR Not detected (Not Detect) Stl Norovirus GI/GII PCR Not detected (Not Detect) Campylobacter (PCR) Not detected (Not Detect) C. difficile Tox (PCR) Not detected (Not Detect) Salmonella (PCR) Not detected (Not Detect) 06/29/21 06/29/21 06/29/21 Range/Units 17:40 17:40 17:40 WBC (4.5-11.0) X10^3/uL RBC (4.0-5.2) X10^6/uL Hgb (12.0-16.0) g/dL Hct (36-46) % MCV (80-100) fL MCH (26-34) PG MCHC (30-36) % RDW (11.6-14.8) % Plt Count (150-400) X10^3/uL Neut % (Auto) (50-75) % Lymph % (Auto) (25-40) % Blaine % (Auto) (3-14) % Eos % (Auto) (2-4) % Baso % (Auto) (0-2) % Neut # (Auto) (2207-0502) /uL Lymph # (Auto) (0242-0938) /uL Blaine # (Auto) (0-900) /uL Eos # (Auto) (0-450) /uL Baso # (Auto) (0-100) /uL RBC Morphology Hypochromasia Poikilocytosis Anisocytosis Microcytosis PT 10.2 (10.1-12.7) SECONDS INR 0.9 (0.9-1.3) APTT 35 (26.4-36.2) SECONDS Sodium 138 (137-145) mmol/L Potassium 4.4 (3.4-5.1) mmol/L Chloride 101 (98-107) mmol/L Carbon Dioxide 32 (22-32) mmol/L BUN 10 (7-17) mg/dL Creatinine 0.56 (0.52-1.04) mg/dL Estimated GFR > 60.0 (>60) mL/min BUN/Creatinine Ratio 17.9 (6-22) Glucose 99 (70-100) mg/dL Lactate 0.9 (0.7-2.1) mmol/L Calcium 9.4 (8.4-10.2) mg/dL Total Bilirubin 0.5 (0.2-1.3) mg/dL AST 49 H (14-36) IU/L ALT 47 H (<35) IU/L Alkaline Phosphatase 100 (38-126) U/L Total Protein 7.7 (6.3-8.2) g/dL Albumin 4.4 (3.5-5.0) g/dL Globulin 3.3 (1.7-4.1) g/dL Albumin/Globulin Ratio 1.3 (1.0-2.8) Lipase 221 (23-300) U/L Urine Color Urine Appearance Urine pH (4.5-8.0) Ur Specific [place] (1.000-1.035) Urine Protein (Negative) Urine Glucose (UA) (Negative) g/dL Urine Ketones (NEGATIVE) Urine Occult Blood (Negative) Urine Nitrate (Negative) Urine Bilirubin (NEGATIVE) Urine Urobilinogen (0.2) E.U./dL Ur Leukocyte Esterase (NEGATIVE) Urine RBC (0-5/HPF) Urine WBC (0-5/HPF) Ur Squamous Epith Cells (0-5/HPF) Urine Bacteria (None) Ur Culture Indicated? Stl C. cayetanensis PCR (Not Detect) Stool Rotavirus (PCR) (Not Detect) Stool Adenovirus (PCR) (Not Detect) Stool Astrovirus (PCR) (Not Detect) Stool Cryptosporidium PCR (Not Detect) Stl E.coli Shiga Tox PCR (Not Detect) St Sh/Enteroin Ecoli PCR (Not Detect) Stool E coli O157 PCR Stl Enterotoxigenic E PCR (Not Detect) Stool EPEC (PCR) (Not Detect) Stl E. histolytica PCR (Not Detect) Stool Giardia Lamblia PCR (Not Detect) Stool Sapovirus (PCR) (Not Detect) Stl P. shigelloides PCR (Not Detect) St Y.enterocolitica PCR (Not Detect) Stool Vibrio (PCR) (Not Detect) Stl Vibrio cholerae PCR (Not Detect) Stl Enteroaggr Ecoli PCR (Not Detect) Stl Norovirus GI/GII PCR (Not Detect) Campylobacter (PCR) (Not Detect) C. difficile Tox (PCR) (Not Detect) Salmonella (PCR) (Not Detect) MDM Narrative Medical decision making narrative: 60-year-old female with past medical history hyperlipidemia, internal, rectal bleeding presents to the ED with 2 weeks of rectal bleeding. Concern for internal hemorrhoids versus anemia versus gastroenteritis Abdominal exam was benign, with no tenderness to palpation. Will order labs, UA, stool studies. No imaging indicated at this time due to benign abdomen. Will reassess. <Terrell Cox DO - Last Filed: 06/30/21 18:03> Lab Data Labs: Lab Results 06/29/21 06/29/21 06/29/21 Range/Units 17:25 17:25 17:40 WBC 8.0 (4.5-11.0) X10^3/uL RBC 5.33 H (4.0-5.2) X10^6/uL Hgb 11.5 L (12.0-16.0) g/dL Hct 36.2 (36-46) % MCV 67.9 L (80-100) fL MCH 21.5 L (26-34) PG MCHC 31.7 (30-36) % RDW 14.8 (11.6-14.8) % Plt Count 301 (150-400) X10^3/uL Neut % (Auto) 59.7 (50-75) % Lymph % (Auto) 27.6 (25-40) % [place] % (Auto) 8.8 (3-14) % Eos % (Auto) 3.0 (2-4) % Baso % (Auto) 0.9 (0-2) % Neut # (Auto) 4800 (1212-2657) /uL Lymph # (Auto) 2200 (1804-3510) /uL [place] # (Auto) 700 (0-900) /uL Eos # (Auto) 200 (0-450) /uL Baso # (Auto) 100 (0-100) /uL RBC Morphology See below Hypochromasia 1+ H Poikilocytosis 1+ H Anisocytosis 1+ H Microcytosis 1+ H PT (10.1-12.7) SECONDS INR (0.9-1.3) APTT (26.4-36.2) SECONDS Sodium (137-145) mmol/L Potassium (3.4-5.1) mmol/L Chloride (98-107) mmol/L Carbon Dioxide (22-32) mmol/L BUN (7-17) mg/dL Creatinine (0.52-1.04) mg/dL Estimated GFR (>60) mL/min BUN/Creatinine Ratio (6-22) Glucose (70-100) mg/dL Lactate (0.7-2.1) mmol/L Calcium (8.4-10.2) mg/dL Total Bilirubin (0.2-1.3) mg/dL AST (14-36) IU/L ALT (<35) IU/L Alkaline Phosphatase (38-126) U/L Total Protein (6.3-8.2) g/dL Albumin (3.5-5.0) g/dL Globulin (1.7-4.1) g/dL Albumin/Globulin Ratio (1.0-2.8) Lipase (23-300) U/L Urine Color Yellow Urine Appearance Clear Urine pH 7.0 (4.5-8.0) Ur Specific [place] <=1.005 (1.000-1.035) Urine Protein Negative (Negative) Urine Glucose (UA) Negative (Negative) g/dL Urine Ketones Negative (NEGATIVE) Urine Occult Blood Negative (Negative) Urine Nitrate Negative (Negative) Urine Bilirubin Negative (NEGATIVE) Urine Urobilinogen 0.2 (0.2) E.U./dL Ur Leukocyte Esterase 1+ H (NEGATIVE) Urine RBC 0-1/hpf (0-5/HPF) Urine WBC 1-5/hpf (0-5/HPF) Ur Squamous Epith Cells 0-1 /hpf (0-5/HPF) Urine Bacteria Few (2-10) H (None) Ur Culture Indicated? Specimen cultured Stl C. cayetanensis PCR Not detected (Not Detect) Stool Rotavirus (PCR) Not detected (Not Detect) Stool Adenovirus (PCR) Not detected (Not Detect) Stool Astrovirus (PCR) Not detected (Not Detect) Stool Cryptosporidium PCR Not detected (Not Detect) Stl E.coli Shiga Tox PCR Not detected (Not Detect) St Sh/Enteroin Ecoli PCR Not detected (Not Detect) Stool E coli O157 PCR Not Reportable Stl Enterotoxigenic E PCR Not detected (Not Detect) Stool EPEC (PCR) Not detected (Not Detect) Stl E. histolytica PCR Not detected (Not Detect) Stool Giardia Lamblia PCR Not detected (Not Detect) Stool Sapovirus (PCR) Not detected (Not Detect) Stl P. shigelloides PCR Not detected (Not Detect) St Y.enterocolitica PCR Not detected (Not Detect) Stool Vibrio (PCR) Not detected (Not Detect) Stl Vibrio cholerae PCR Not detected (Not Detect) Stl Enteroaggr Ecoli PCR Not detected (Not Detect) Stl Norovirus GI/GII PCR Not detected (Not Detect) Campylobacter (PCR) Not detected (Not Detect) C. difficile Tox (PCR) Not detected (Not Detect) Salmonella (PCR) Not detected (Not Detect) 06/29/21 06/29/21 06/29/21 Range/Units 17:40 17:40 17:40 WBC (4.5-11.0) X10^3/uL RBC (4.0-5.2) X10^6/uL Hgb (12.0-16.0) g/dL Hct (36-46) % MCV (80-100) fL MCH (26-34) PG MCHC (30-36) % RDW (11.6-14.8) % Plt Count (150-400) X10^3/uL Neut % (Auto) (50-75) % Lymph % (Auto) (25-40) % [place] % (Auto) (3-14) % Eos % (Auto) (2-4) % Baso % (Auto) (0-2) % Neut # (Auto) (3159-5599) /uL Lymph # (Auto) (2419-5058) /uL [place]aine # (Auto) (0-900) /uL Eos # (Auto) (0-450) /uL Baso # (Auto) (0-100) /uL RBC Morphology Hypochromasia Poikilocytosis Anisocytosis Microcytosis PT 10.2 (10.1-12.7) SECONDS INR 0.9 (0.9-1.3) APTT 35 (26.4-36.2) SECONDS Sodium 138 (137-145) mmol/L Potassium 4.4 (3.4-5.1) mmol/L Chloride 101 (98-107) mmol/L Carbon Dioxide 32 (22-32) mmol/L BUN 10 (7-17) mg/dL Creatinine 0.56 (0.52-1.04) mg/dL Estimated GFR > 60.0 (>60) mL/min BUN/Creatinine Ratio 17.9 (6-22) Glucose 99 (70-100) mg/dL Lactate 0.9 (0.7-2.1) mmol/L Calcium 9.4 (8.4-10.2) mg/dL Total Bilirubin 0.5 (0.2-1.3) mg/dL AST 49 H (14-36) IU/L ALT 47 H (<35) IU/L Alkaline Phosphatase 100 (38-126) U/L Total Protein 7.7 (6.3-8.2) g/dL Albumin 4.4 (3.5-5.0) g/dL Globulin 3.3 (1.7-4.1) g/dL Albumin/Globulin Ratio 1.3 (1.0-2.8) Lipase 221 (23-300) U/L Urine Color Urine Appearance Urine pH (4.5-8.0) Ur Specific [place] (1.000-1.035) Urine Protein (Negative) Urine Glucose (UA) (Negative) g/dL Urine Ketones (NEGATIVE) Urine Occult Blood (Negative) Urine Nitrate (Negative) Urine Bilirubin (NEGATIVE) Urine Urobilinogen (0.2) E.U./dL Ur Leukocyte Esterase (NEGATIVE) Urine RBC (0-5/HPF) Urine WBC (0-5/HPF) Ur Squamous Epith Cells (0-5/HPF) Urine Bacteria (None) Ur Culture Indicated? Stl C. cayetanensis PCR (Not Detect) Stool Rotavirus (PCR) (Not Detect) Stool Adenovirus (PCR) (Not Detect) Stool Astrovirus (PCR) (Not Detect) Stool Cryptosporidium PCR (Not Detect) Stl E.coli Shiga Tox PCR (Not Detect) St Sh/Enteroin Ecoli PCR (Not Detect) Stool E coli O157 PCR Stl Enterotoxigenic E PCR (Not Detect) Stool EPEC (PCR) (Not Detect) Stl E. histolytica PCR (Not Detect) Stool Giardia Lamblia PCR (Not Detect) Stool Sapovirus (PCR) (Not Detect) Stl P. shigelloides PCR (Not Detect) St Y.enterocolitica PCR (Not Detect) Stool Vibrio (PCR) (Not Detect) Stl Vibrio cholerae PCR (Not Detect) Stl Enteroaggr Ecoli PCR (Not Detect) Stl Norovirus GI/GII PCR (Not Detect) Campylobacter (PCR) (Not Detect) C. difficile Tox (PCR) (Not Detect) Salmonella (PCR) (Not Detect) Discharge Plan Departure Patient Disposition: Home Clinical Impression: Rectal bleed Instructions: DI for Rectal Bleeding Activity Restrictions/Additional Instructions: You were evaluated in the ED for rectal bleeding today. Your labs were normal, with no evidence of anemia. Your rectal bleeding is likely due to internal hemorrhoids that you have been diagnosed with in January 2021. Please follow-up with your GI doctor and your PCP for further treatment. You may take a stool softener such as Dulcolax or laxative such as MiraLax to prevent constipation and reduce the risk of bleeding. Please return to the ED if your symptoms worsens, you experience trouble breathing, lightheadedness or dizziness. Prescriptions: No Action multivitamin with minerals [All Purpose Multivitamin-Min] Tablet 1 tab PO DAILY RF: 0 atorvastatin 20 mg tablet 20 mg PO BEDTIME RF: 0 Referrals: John Caraballo DO [Primary Care Provider] - <Terrell Cox DO - Last Filed: 06/30/21 18:03> Cosign ED Attending Coshernanature Attestation: I was immediately available in the department for consultation. This documentation has been reviewed and I agree with assessment and plan. Supervised by Terrell Cox,
[2021-06-29 17:41] VITALS: BP 171/83; PULSE 63; RESP 16; O2SAT 100
[2021-06-29 17:49] LABS: Add Manual Diff / Slide Review NO; Basophils Absolute Auto 100 /uL (0-100); Basophils Percent Auto 0.9 % (0-2); Eosinophils Absolute Auto 200 /uL (0-450); Hematocrit 36.2 % (36-46); Hemoglobin 11.5 g/dL (12.0-16.0); Lymphocytes Absolute Auto 2200 /uL (1100-4500); Lymphocytes Percent Auto 27.6 % (25-40); Mean Corpuscular HGB Conc 31.7 % (30-36); Mean Corpuscular Hemoglobin 21.5 PG (26-34); Mean Corpuscular Volume 67.9 fL (80-100); Monocytes Absolute Auto 700 /uL (0-900); Monocytes Percent Auto 8.8 % (3-14); Neutrophils Absolute Auto 4800 /uL (1500-7000); Neutrophils Percent Auto 59.7 % (50-75); Platelet Count 301 X10^3/uL (150-400); Red Blood Cell Count 5.33 X10^6/uL (4.0-5.2); Red Cell Distribution Width 14.8 % (11.6-14.8)
[2021-06-29 17:50] LABS: Appearance Urine UA CLEAR; Bilirubin Urine UA NEGATIVE (NEGATIVE); Color Urine UA YELLOW; Glucose Urine UA NEGATIVE (Negative); Ketones Urine UA NEGATIVE (NEGATIVE); Leukocyte Esterase Urine UA 1+ (NEGATIVE); Nitrite Urine UA NEGATIVE (Negative); Occult Blood Urine UA NEGATIVE (Negative); Protein Urine UA NEGATIVE (Negative); Specific Gravity Urine UA <=1.005 (1.000-1.035); Urobilinogen Urine UA 0.2 E.U./dL (0.2)
[2021-06-29 18:01] LABS: Bacteria Urine Few (2-10); Culture Indicated Urine Specimen Cultured; RBC Urine 0-1/HPF (0-5/HPF); Squamous Epithelial Cell Urine 0-1 /HPF (0-5/HPF); WBC Urine 1-5/HPF (0-5/HPF)
[2021-06-29 18:10] LABS: INR 0.9 (0.9-1.3); Prothrombin Time 10.2 SECONDS (10.1-12.7)
[2021-06-29 18:12] LABS: PTT Partial Thromboplastin Tim 35 SECONDS (26.4-36.2)
[2021-06-29 18:13] LABS: Lactate (Lactic Acid) 0.9 mmol/L (0.7-2.1)
[2021-06-29 18:14] LABS: Alanine Aminotransferase 47 IU/L (<35); Albumin 4.4 g/dL (3.5-5.0); Albumin Globulin Ratio 1.3 (1.0-2.8); Alkaline Phosphatase 100 U/L (38-126); Aspartate Aminotransferase 49 IU/L (14-36); BUN Creatinine Ratio 17.9 (6-22); Bilirubin Total 0.5 mg/dL (0.2-1.3); Blood Urea Nitrogen 10 mg/dL (7-17); Calcium 9.4 mg/dL (8.4-10.2); Carbon Dioxide 32 mmol/L (22-32); Chloride 101 mmol/L (98-107); Estimated Glomerular Filt Rate > 60.0 mL/min (>60); Globulin 3.3 g/dL (1.7-4.1); Glucose 99 mg/dL (70-100); HEMOLYSIS 51 (0-50); Lipase 221 U/L (23-300); Potassium 4.4 mmol/L (3.4-5.1); Sodium 138 mmol/L (137-145); Total Protein 7.7 g/dL (6.3-8.2)
[2021-06-29 18:18] LABS: Anisocytosis 1+; Hypochromasia 1+; Microcytosis 1+; Poikilocytosis 1+
[2021-06-29 18:44] VITALS: BP 170/81; PULSE 58; RESP 16; O2SAT 99
[2021-06-29 19:50] LABS: Adenovirus F 40/41 Not Detected (Not Detect); Astrovirus Not Detected (Not Detect); Campylobacter Not Detected (Not Detect); Clostridium difficile toxin AB Not Detected (Not Detect); Cryptosporidium Not Detected (Not Detect); Cyclospora cayetanensis Not Detected (Not Detect); Entamoeba histolytica Not Detected (Not Detect); Enteroaggregative E.coli Not Detected (Not Detect); Enteropathogenic E.coli Not Detected (Not Detect); Enterotoxigenic E.coli It/st Not Detected (Not Detect); Giardia lamblia Not Detected (Not Detect); Norovirus GI/GII Not Detected (Not Detect); Plesiomonsa shigelloides Not Detected (Not Detect); Rotavirus A Not Detected (Not Detect); Salmonella Not Detected (Not Detect); Sapovirus Not Detected (Not Detect); Shiga-like toxin-prod E.coli Not Detected (Not Detect); Shigella/Enteroinvasive E.coli Not Detected (Not Detect); Vibrio Not Detected (Not Detect); Vibrio cholerae Not Detected (Not Detect); Yersinia enterocolitica Not Detected (Not Detect)
== END 2021-06-29 19:53 | disposition home or self-care (01) ==
PROVIDERS: Emergency Medicine; Emergency Provider Student in an Organized Health Care Education/Training Program; Family Provider Family Medicine; PCP Family Medicine
DX: K62.5 Hemorrhage of anus and rectum (principal)
CPT/HCPCS: 36415; 80053; 81001; 83605; 83690; 85025; 85610; 85730; 87086; 87507; 99283

== ENCOUNTER → 2021-07-03 16:16 | Outpatient (CLI) | payer OTHER, SELFPAY ==
[2021-07-03 17:13] LABS: COVID19 -Nasal RAPID Negative (Negative)
== END ==
PROVIDERS: Family Provider Family Medicine; PCP Family Medicine; Visit Provider Specialist
DX: Z01.812 Encounter for preprocedural laboratory examination (principal); Z20.822 Contact with and (suspected) exposure to COVID-19; K64.8 Other hemorrhoids
CPT/HCPCS: 46600; 87635

== ENCOUNTER → 2021-07-07 12:26 | Day surgery (SDC) | payer OTHER, SELFPAY ==
[2021-07-06 10:15] VITALS: BMI 25.2
--- NOTE | 2021-07-07 | PATH_ITS ---
[facility] Accession Number: [id number] . 01 Material submitted: . rectum - RECTAL . 02 Diagnosis: Rectum, Biopsies: Severely active colitis with ulceration. Please see comment. Negative for granulomas, dysplasia and malignancy. MRV 07/10/2021 1503 Local . 02 Comment: The rectal biopsy shows diffuse neutrophilic activity including cryptitis, crypt abscesses and ulceration. There is diffusely increased lymphocytes and plasma cells in the lamina propria and shorted crypt length without branched crypt architecture. No obvious viral cytopathic effects or parasitic organisms are identified. The differential diagnosis includes infection, medication-related mucosal injury, trauma/prolapse, and idiopathic inflammatory bowel disease. . 02 Electronically signed: . Germaine Orantes MD, Pathologist NPI- [id number] . 01 Gross description: . RECTAL: Received in formalin are multiple fragment(s) of encinas, soft tissue measuring 2.0 x 0.5 x 0.3 cm in aggregate submitted entirely in 1 cassette(s) /MARVIN 07/08/2021 0431 Local . 02 Microscopic: . A CMV immunohistochemical stain was performed to evaluate for CMV antigen and is negative. The control stain showed appropriate reactivity. . * This test was developed and its performance characteristics determined by [facility]. It has not been cleared or approved by the U.S. Food and Drug Administration. The FDA has determined that such clearance or approval is not necessary. This test is used for clinical purposes. It should not be regarded as investigational or for research. . 02 Pathologist provided ICD-10: R10.9 . 02 CPT . 285025, [id number] Performed at: 01 [facility] [address] [place] [address] [address], [place], [place] [id number] MD Piero Francisco MD Phone: [phone] Performed at: 02 [facility] [address] [place] [id number] MD Germaine Orantes MD Phone: [phone]
[2021-07-07 13:08] LABS: COVID19 -Nasal RAPID Negative (Negative)
[2021-07-07 13:38] VITALS: BP 167/87; PULSE 73; RESP 100; TEMP 36.9; BMI 25.2
[2021-07-07] MEDS: LACTATED RINGERS 1,000 ML 42 ML IV (13:54)
--- NOTE | 2021-07-07 14:13 | PM.PREOP ---
Pre-operative Note COVID-19 COVID-19 status: Negative Result date/Date tested (Pos, Neg/Pending): 07/03/21 Interval Note History & Physical reviewed/Exam performed by Physician: Yes Changes to H&P: No
--- NOTE | 2021-07-07 15:33 | SUR.OPER ---
Prone on padded OR bed, head in foam head support, gel chest rolls, gel pad under knees, pillow under lower legs, toes free of pressure, arms secured on padded arm boards at <90 degrees abduction. Safety belt at chest.
[2021-07-07 15:42] VITALS: BP 156/83; PULSE 79; RESP 12; TEMP 37.6; O2SAT 96
[2021-07-07 15:47] VITALS: BP 139/71; PULSE 70; RESP 12; O2SAT 100
[2021-07-07 15:52] VITALS: BP 144/63; PULSE 64; RESP 10; O2SAT 100
[2021-07-07 15:55] VITALS: BP 144/63; PULSE 63; RESP 12; O2SAT 99
--- NOTE | 2021-07-07 16:03 | PM.OP.1 ---
Operative Date/Time/Diagnoses Date of procedure: 07/07/21 Time of procedure: 16:04 Pre-op diagnosis: Rectal bleeding. Suspect bleeding hemorrhoids. Post-op diagnosis: same ( Did not appear to have rectal bleeding from hemorrhoids. Blood seem to be coming from above with diffuse inflammation of the colon wall. Suspect proctitis.) Procedure & Clinicians Procedure: Exam under anesthesia and proctoscopy Same procedure as scheduled: Yes Indications: treat cause of rectal bleeding presumed to be from hemorrhoids Surgeon: Hilario Blunt Click Yes if Unassisted: Yes Anesthesia Type: General Operative Notes Findings: inflammation and blood coming from above the hemorrhoidal columns. Appeared if he diffusely inflamed. Closure Type: not applicable Specimen(s): other ( Rectal biopsies and stool for GI panel) Estimated Blood Loss (mL): 0 Blood products transfused: none Procedure in detail: the patient was placed active prone after undergoing general endotracheal anesthesia. She was prepped and draped in the usual fashion. She had visible skin tags and her perianal skin. Digital exam revealed no palpable mass. [place] anoscope was inserted and circumferential exam undertaken. I could not find any source of bleeding in the hemorrhoids though there appeared to be blood coming from above. I inserted a proctoscope to 15 cm. The rectal and colon wall seem to be inflamed. Biopsies were taken and stool was collected for specimen. It was submitted for a GI panel. Procedure was abandoned. I did not feel that performing hemorrhoidectomy but solve the cause of her problem and might complicate her treatment. Post-operative Condition: stable Disposition: PACU Plan for aftercare: Steroid had a Mohs and await pathology
[2021-07-07 16:06] VITALS: BP 154/79; PULSE 59; RESP 12; TEMP 36.6; O2SAT 100
[2021-07-07 17:53] LABS: Adenovirus F 40/41 Not Detected (Not Detect); Astrovirus Not Detected (Not Detect); Campylobacter Not Detected (Not Detect); Clostridium difficile toxin AB Not Detected (Not Detect); Cryptosporidium Not Detected (Not Detect); Cyclospora cayetanensis Not Detected (Not Detect); Entamoeba histolytica Not Detected (Not Detect); Enteroaggregative E.coli Not Detected (Not Detect); Enteropathogenic E.coli Not Detected (Not Detect); Enterotoxigenic E.coli It/st Not Detected (Not Detect); Giardia lamblia Not Detected (Not Detect); Norovirus GI/GII Not Detected (Not Detect); Plesiomonsa shigelloides Not Detected (Not Detect); Rotavirus A Not Detected (Not Detect); Salmonella Not Detected (Not Detect); Sapovirus Not Detected (Not Detect); Shiga-like toxin-prod E.coli Not Detected (Not Detect); Shigella/Enteroinvasive E.coli Not Detected (Not Detect); Vibrio Not Detected (Not Detect); Vibrio cholerae Not Detected (Not Detect); Yersinia enterocolitica Not Detected (Not Detect)
== END | disposition home or self-care (01) ==
PROVIDERS: Family Provider Family Medicine; PCP Family Medicine; Referring Provider Specialist; Visit Provider Specialist
PROC: (CPT 45305; principal; 2021-07-07 14:30)
DX: K52.89 Other specified noninfective gastroenteritis and colitis (principal); Z20.822 Contact with and (suspected) exposure to COVID-19
CPT/HCPCS: 45305; 87507; 87635; J0330; J1100; J2405; J2704; J3010

== ENCOUNTER → 2021-07-21 12:31 | Outpatient (CLI) | payer OTHER, SELFPAY ==
--- NOTE | 2021-07-21 11:47 | DI.MG.S_ITS ---
BILATERAL DIGITAL SCREENING MAMMOGRAM 3D/2D WITH CAD: 07/21/2021 CLINICAL: Routine screening. Comparison is made to exams dated: 05/02/2020 mammogram, 03/21/2019 mammogram, and 11/30/2017 mammogram - [facility]. The tissue of both breasts is heterogeneously dense. This may lower the sensitivity of mammography. Current study was also evaluated with a Computer Aided Detection (CAD) system. No significant masses, calcifications, or other findings are seen in either breast. There has been no significant interval change. IMPRESSION: NEGATIVE There is no mammographic evidence of malignancy. A 1 year screening mammogram is recommended. This exam was interpreted at Station ID: [id number]. NOTE: For mammograms, a report in lay terms will be sent to the patient. Approximately 15% of breast malignancies will not be visualized mammographically. In the management of a palpable breast mass, a negative mammogram must not discourage biopsy of a clinically suspicious lesion. Electronically Signed By: Fahad Lazcano M.D., jr/michelle:07/21/2021 13:34:20 letter sent: Normal Exam ACR BI-RADS Category 1: Negative 3341F
== END ==
PROVIDERS: Family Provider Family Medicine; PCP Family Medicine; Referring Provider Family Medicine; Visit Provider Family Medicine
DX: Z12.31 Encounter for screening mammogram for malignant neoplasm of breast (principal)
CPT/HCPCS: 77063; 77067

== ENCOUNTER → 2021-12-25 09:44 | Outpatient (CLI) | payer OTHER, SELFPAY ==
[2021-12-25 11:27] LABS: Alanine Aminotransferase 21 IU/L (<35); Albumin 4.3 g/dL (3.5-5.0); Albumin Globulin Ratio 1.5 (1.0-2.8); Alkaline Phosphatase 65 U/L (38-126); Aspartate Aminotransferase 30 IU/L (14-36); BUN Creatinine Ratio 17.2 (6-22); Bilirubin Total 0.8 mg/dL (0.2-1.3); Blood Urea Nitrogen 11 mg/dL (7-17); Calcium 9.3 mg/dL (8.4-10.2); Carbon Dioxide 32 mmol/L (22-32); Chloride 103 mmol/L (98-107); Cholesterol 149 mg/dL (140-199); Estimated Glomerular Filt Rate > 60.0 mL/min (>60); Globulin 2.8 g/dL (1.7-4.1); Glucose 95 mg/dL (80-110); HDL Cholesterol 54 mg/dL (40-60); HEMOLYSIS < 15 (0-50); LDL Cholesterol Calculated 85 mg/dL (<100); Potassium 4.1 mmol/L (3.4-5.1); Sodium 140 mmol/L (137-145); Total Protein 7.1 g/dL (6.3-8.2); Triglycerides 52 mg/dL (35-150)
== END ==
PROVIDERS: Family Provider Family Medicine; PCP Family Medicine; Referring Provider Family Medicine; Visit Provider Family Medicine
DX: E78.2 Mixed hyperlipidemia (principal)
CPT/HCPCS: 36415; 80053; 80061

== ENCOUNTER → 2022-04-02 08:20 | Outpatient (CLI) | payer OTHER, SELFPAY ==
[2022-04-02 09:54] LABS: Alanine Aminotransferase 21 IU/L (<35); Albumin 4.3 g/dL (3.5-5.0); Albumin Globulin Ratio 1.7 (1.0-2.8); Alkaline Phosphatase 67 U/L (38-126); Aspartate Aminotransferase 32 IU/L (14-36); BUN Creatinine Ratio 12.5 (6-22); Bilirubin Total 0.7 mg/dL (0.2-1.3); Blood Urea Nitrogen 8 mg/dL (7-17); Calcium 9.2 mg/dL (8.4-10.2); Carbon Dioxide 29 mmol/L (22-32); Chloride 96 mmol/L (98-107); Estimated Glomerular Filt Rate > 60 mL/min (>60); Globulin 2.6 g/dL (1.7-4.1); Glucose 99 mg/dL (80-110); HEMOLYSIS < 15 (0-50); Potassium 4.4 mmol/L (3.4-5.1); Sodium 136 mmol/L (137-145); Total Protein 6.9 g/dL (6.3-8.2)
== END ==
PROVIDERS: Family Provider Family Medicine; PCP Family Medicine; Referring Provider Family Medicine; Visit Provider Family Medicine
DX: E78.2 Mixed hyperlipidemia (principal); I10 Essential (primary) hypertension
CPT/HCPCS: 36415; 80053

== ENCOUNTER → 2022-04-21 16:18 | Outpatient (CLI) | payer OTHER, SELFPAY ==
--- NOTE | 2022-04-21 | DI.MRI.S_ITS ---
PROCEDURE: MR SHOULDER LT WO CON INDICATIONS: IMPINGEMENT SYNDROME OF LT. SHOULDER TECHNIQUE: Noncontrast oblique coronal T2 fast spin echo with fat saturation, oblique sagittal T1 spin echo and T2 fast spin echo with fat saturation, axial T1 spin echo and T2 fast spin echo with fat saturation through the shoulder. COMPARISON: None. FINDINGS: Image quality: Excellent. Rotator cuff: Low to moderate grade articular and bursal surface partial thickness tear involving distal supraspinatus at its insertion on the humeral head extending to musculotendinous junction. Distal infraspinatus tendinosis is seen. Distal subscapularis tendinosis is also noted. No full-thickness rotator cuff tendon rupture. Sagittal images demonstrate no significant muscle atrophy. Bones and bursae: No bone marrow contusions or fractures. Mild to moderate acromioclavicular joint osteoarthritic changes are seen with downward osteophyte formation depressing the musculotendinous junction of supraspinatus. Mild glenohumeral joint osteoarthritic changes also noted. There is small amount of subacromial subdeltoid bursal fluid. Capsule and soft tissues: Signal abnormality and fraying of superior anterior labrum at 12 to 1 o'clock position is seen suggestive of superior anterior labral tear. The long head of the biceps tendon demonstrates normal location and morphology. The rotator interval appears normal, without fibrosis. The coracohumeral ligament is normal in thickness. IMPRESSION: 1. Low to moderate grade articular and bursal surface partial thickness tear involving distal supraspinatus extending to musculotendinous junction. Distal infraspinatus and subscapularis tendinosis. No full-thickness rotator cuff tendon rupture. 2. 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 3. Suggestion of superior anterior labral tear at 12 to 1 o'clock position. Dictated by: New Davies M.D. on 04/22/2022 at 8:06 Approved by: New Davies M.D. on 04/22/2022 at 8:08
== END ==
PROVIDERS: Family Provider Family Medicine; PCP Family Medicine; Referring Provider Orthopaedic Surgery; Visit Provider Orthopaedic Surgery
DX: M75.112 Incomplete rotator cuff tear or rupture of left shoulder, not specified as traumatic (principal); M75.42 Impingement syndrome of left shoulder; M19.012 Primary osteoarthritis, left shoulder
CPT/HCPCS: 73221

== ENCOUNTER 2022-05-25 18:22 | Emergency (ER) | payer OTHER, SELFPAY ==
[2022-05-25 19:07] VITALS: BP 200/94; PULSE 54; RESP 12; TEMP 36.5; O2SAT 100; BMI 25.4
[2022-05-25 19:39] LABS: Add Manual Diff / Slide Review NO; Basophils Absolute Auto 0 /uL (0-100); Basophils Percent Auto 0.4 % (0-2); Eosinophils Absolute Auto 100 /uL (0-450); Hematocrit 34.7 % (36-46); Hemoglobin 11.1 g/dL (12.0-16.0); Lymphocytes Absolute Auto 2200 /uL (1100-4500); Lymphocytes Percent Auto 31.7 % (25-40); Mean Corpuscular HGB Conc 31.9 % (30-36); Mean Corpuscular Hemoglobin 21.7 PG (26-34); Mean Corpuscular Volume 68.1 fL (80-100); Monocytes Absolute Auto 700 /uL (0-900); Monocytes Percent Auto 9.6 % (3-14); Neutrophils Absolute Auto 4000 /uL (1500-7000); Neutrophils Percent Auto 56.3 % (50-75); Platelet Count 302 X10^3/uL (150-400); Red Cell Distribution Width 15.9 % (11.6-14.8); White Blood Cell Count 7.1 X10^3/uL (4.5-11.0)
[2022-05-25 19:45] LABS: Alanine Aminotransferase 48 IU/L (<35); Albumin 4.5 g/dL (3.5-5.0); Albumin Globulin Ratio 1.4 (1.0-2.8); Alkaline Phosphatase 94 U/L (38-126); Aspartate Aminotransferase 48 IU/L (14-36); BUN Creatinine Ratio 12.1 (6-22); Bilirubin Total 0.4 mg/dL (0.2-1.3); Blood Urea Nitrogen 7 mg/dL (7-17); Calcium 9.1 mg/dL (8.4-10.2); Carbon Dioxide 30 mmol/L (22-32); Chloride 99 mmol/L (98-107); Estimated Glomerular Filt Rate > 60 mL/min (>60); Globulin 3.3 g/dL (1.7-4.1); Glucose 100 mg/dL (80-110); HEMOLYSIS < 15 (0-50); Lipase 189 U/L (23-300); Potassium 3.9 mmol/L (3.4-5.1); Sodium 136 mmol/L (137-145); Total Protein 7.8 g/dL (6.3-8.2)
[2022-05-25 20:19] LABS: Bacteria Urine Few (2-10); Culture Indicated Urine Specimen Cultured; RBC Urine 0-1/HPF (0-5/HPF); Squamous Epithelial Cell Urine 1-5 /HPF (0-5/HPF); WBC Urine 1-5/HPF (0-5/HPF)
[2022-05-25 20:36] LABS: Hypochromasia 1+
[2022-05-25 20:37] LABS: Microcytosis 1+; Ovalocytes 1+
[2022-05-26] VITALS (7 sets, daily range): BP systolic 154–181; BP diastolic 62–87; PULSE 58–75; O2SAT 98–100
--- NOTE | 2022-05-26 01:33 | DI.CT.S_ITS ---
PROCEDURE: CT ABDOMEN PELVIS W CON INDICATIONS: LLQ abdominal pain TECHNIQUE: After the administration of intravenous contrast, axial sections acquired from the lung bases to the pubic symphysis. Coronal and sagittal reformats were performed. For radiation dose reduction, the following was used: automated exposure control, adjustment of mA and/or kV according to patient size. COMPARISON: None. FINDINGS: Image quality: Excellent. Lung bases: Clear lung bases. No hiatal hernia. Heart: Normal size heart without pericardial effusion. ABDOMEN: Liver: No masses Gallbladder: Normal wall thickness. Decompressed. Biliary ducts: Nondilated. Pancreas: Normal. Spleen: Normal size. Adrenal Glands: No nodules. Kidneys and Ureters: Normal enhancement. No hydronephrosis or hydroureter. No calcifications. Stomach and Bowel: There is a short segment of acute diverticulitis in the distal descending colon. Hyperdense impacted diverticula is seen along the medial margin. There is trace thickening of the adjacent lateral conal fascia. No associated fluid or extraluminal gas. Small bowel, remainder of the colon, and appendix are normal. The stomach is normal. Peritoneum: No abnormal intraperitoneal fluid. No free air. Ventral Wall: No hernias. Abdominal Nodes: No retroperitoneal or mesenteric adenopathy by size criteria. Vessels: Aorta and inferior vena cava are normal in size. PELVIS: Pelvic Organs: Vertically oriented uterus. Tiny fat containing nodule adjacent to the right ovary potentially a small dermoid. Left ovary not convincingly identified. No suspicious adnexal mass. Bladder: Normal wall thickness. Pelvic Nodes: No enlarged lymph nodes. Miscellaneous: No hernias are seen. Bones: Unremarkable. IMPRESSION: 1. Short segment of acute uncomplicated diverticulitis in the distal descending colon. 2. Possible tiny right ovarian dermoid incidentally noted. Dictated by: Eli Sanford M.D. on 05/26/2022 at 2:07 Approved by: Eli Sanford M.D. on 05/26/2022 at 2:12
--- NOTE | 2022-05-26 02:48 | ED_ITS ---
HPI - General Adult General Chief complaint: Abdominal Pain Stated complaint: Left side stomach pain Time Seen by Provider: 05/25/22 20:17 Source: patient Mode of arrival: Ambulatory History of Present Illness HPI narrative: 61-year-old woman with a history of hypertension, hyperlipidemia initially seen at the walk-in clinic today with 2 days of left lower quadrant pain. Into the emergency department for further evaluation. She denies fever, cough, chills, or vomiting, chest pain, palpitations, headache, syncope. She states she has never had similar pain. She has not been having diarrhea or constipation. She describes no rectal bleeding. Related Data Home Medications Medication Instructions Recorded Confirmed multivitamin with minerals 1 tab PO DAILY 06/29/21 12/25/21 Previous Rx's Medication Instructions Recorded atorvastatin 20 mg tablet 20 mg PO BEDTIME #90 tabs 12/25/21 lisinopril 10 mg tablet 10 mg PO DAILY #90 tabs 12/25/21 benzonatate 100 mg capsule 100 mg PO BID-TID PRN cough #30 05/04/22 caps amoxicillin 875 mg-potassium 1 tab PO BID #20 tabs 05/26/22 clavulanate 125 mg tablet Allergies Allergy/AdvReac Type Severity Reaction Status Date / Time No Known Drug Allergies Allergy Verified 05/25/22 19:11 Review of Systems Review of Systems Narrative: Remainder of complete review of systems is otherwise unremarkable except for that included in the HPI. Patient History Medical History Adhesive capsulitis Alpha thalassemia trait Bicipital tendinitis of left shoulder COVID-19 Elevated blood pressure reading without diagnosis of hypertension History of endometrial biopsy (2014) Hyperlipidemia Hyperlipidemia Hypertension Internal hemorrhoid, bleeding Preventative health care Rectal bleeding Surgical History Anesthesia Status post delivery Family History Brother No problems noted. Brother No problems noted. Father COPD (chronic obstructive pulmonary disease) Mother Leukemia Social History household members: family and children Smoking Status: Never smoker alcohol intake: never substance use type: does not use Smoking Status: Never smoker alcohol intake frequency: other Substance Use Type: does not use Exam Initial Vital Signs Initial Vital Signs: Vital Signs Temperature 97.7 F 05/25/22 19:07 Pulse Rate 54 L 05/25/22 19:07 Respiratory Rate 12 05/25/22 19:07 Blood Pressure 200/94 H 05/25/22 19:07 Pulse Oximetry 100 05/25/22 19:07 Oxygen Delivery Method 05/25/22 19:07 General: Healthy appearing, in no acute distress. Able to give a complete and coherent history. Well-nourished well-developed HEENT: Moist mucous membranes, normal sclera with reactive pupils, Neck: No JVD, supple Respiratory: Lungs are clear to auscultation, no wheezing no rales no rhonchi. Full and symmetrical air movement Cardiac: Regular rate and rhythm no murmurs no bruits Abdomen: Soft, mild left lower quadrant tenderness without rebound or guarding, good bowel tones, no flank pain Skin: Warm and dry, no rashes Neurologic: Grossly neurologically intact with no obvious asymmetries or abnormalities Extremities: No trauma, well perfused Psych: Cooperative, appropriate insight and affect Course Orders Ordered: ED Orders 05/25/22 19:20 Urine Culture Stat Urine Microscopic Stat 05/25/22 19:25 Complete Blood Count AUTO DIFF Stat Comprehensive Metabolic Panel Stat Lipase Stat 05/26/22 01:33 CT abdomen pelvis w con Stat Discontinued Medications Amoxicillin/Clavulanate Potassium (Amoxicillin/Clav 875/125 Mg) 1 tab PO NOW ONE Stop: 05/26/22 03:02 Ketorolac Tromethamine (Ketorolac 30 Mg/Ml Vial) 15 mg IV NOW ONE Stop: 05/26/22 03:02 Vital Signs Vital signs: Vital Signs - 8 hr 05/26/22 01:05 05/26/22 01:14 05/26/22 01:14 Pulse Rate 75 68 Blood Pressure 158/76 H Pulse Oximetry 98 100 Medical Decision Making Lab Data Result diagrams: 05/25/22 19:25 05/25/22 19:25 Labs: Lab Results 05/25/22 05/25/22 05/25/22 Range/Units 19:20 19:25 19:25 WBC 7.1 (4.5-11.0) X10^3/uL RBC 5.10 (4.0-5.2) X10^6/uL Hgb 11.1 L (12.0-16.0) g/dL Hct 34.7 L (36-46) % MCV 68.1 L (80-100) fL MCH 21.7 L (26-34) PG MCHC 31.9 (30-36) % RDW 15.9 H (11.6-14.8) % Plt Count 302 (150-400) X10^3/uL Neut % (Auto) 56.3 (50-75) % Lymph % (Auto) 31.7 (25-40) % [place] % (Auto) 9.6 (3-14) % Eos % (Auto) 2.0 (2-4) % Baso % (Auto) 0.4 (0-2) % Neut # (Auto) 4000 (5172-7462) /uL Lymph # (Auto) 2200 (7868-2253) /uL [place] # (Auto) 700 (0-900) /uL Eos # (Auto) 100 (0-450) /uL Baso # (Auto) 0 (0-100) /uL RBC Morphology See below Hypochromasia 1+ H Microcytosis 1+ H Ovalocytes 1+ H Sodium 136 L (137-145) mmol/L Potassium 3.9 (3.4-5.1) mmol/L Chloride 99 (98-107) mmol/L Carbon Dioxide 30 (22-32) mmol/L BUN 7 (7-17) mg/dL Creatinine 0.58 (0.52-1.04) mg/dL Estimated GFR > 60 (>60) mL/min BUN/Creatinine Ratio 12.1 (6-22) Glucose 100 (80-110) mg/dL Calcium 9.1 (8.4-10.2) mg/dL Total Bilirubin 0.4 (0.2-1.3) mg/dL AST 48 H (14-36) IU/L ALT 48 H (<35) IU/L Alkaline Phosphatase 94 (38-126) U/L Total Protein 7.8 (6.3-8.2) g/dL Albumin 4.5 (3.5-5.0) g/dL Globulin 3.3 (1.7-4.1) g/dL Albumin/Globulin Ratio 1.4 (1.0-2.8) Lipase 189 (23-300) U/L Urine RBC 0-1/hpf (0-5/HPF) Urine WBC 1-5/hpf (0-5/HPF) Ur Squamous Epith Cells 1-5 /hpf (0-5/HPF) Urine Bacteria Few (2-10) H (None) Ur Culture Indicated? Specimen cultured Urine Dip Bedside Urine Glucose Negative Bedside Urine Bilirubin - Negative Bedside Urine Ketone - Negative Urine Specific [place] 1.015 Bedside Urine Occult Blood - Negative Bedside Urine pH 6.0 Bedside Urine Protein - Negative Bedside Urine Urobilinogen - Negative Bedside Urine Nitrite - Negative Bedside Urine Leukocytes + 70 Esterase Point of care testing: Urine Dip Bedside Urine Glucose Negative Bedside Urine Bilirubin - Negative Bedside Urine Ketone - Negative Urine Specific [place] 1.015 Bedside Urine Occult Blood - Negative Bedside Urine pH 6.0 Bedside Urine Protein - Negative Bedside Urine Urobilinogen - Negative Bedside Urine Nitrite - Negative Bedside Urine Leukocytes + [address] scan - abdomen/pelvis: Radiologist's Impression: FINDINGS:? Image quality:? Excellent.? ? Lung bases:? Clear lung bases.? No hiatal hernia.? ? Heart:? Normal size heart without pericardial effusion. ? ABDOMEN: Liver:? No masses Gallbladder:? Normal wall thickness.? Decompressed. Biliary ducts:? Nondilated. Pancreas:? Normal. Spleen:? Normal size. Adrenal Glands:? No nodules. Kidneys and Ureters:? Normal enhancement.? No hydronephrosis or hydroureter.? No calcifications. ? Stomach and Bowel:? There is a short segment of acute diverticulitis in the distal descending colon.? Hyperdense impacted diverticula is seen along the medial margin.? There is trace thickening of the adjacent lateral conal fascia.? No associated fluid or extraluminal gas.? Small bowel, remainder of the colon, and appendix are normal.? The stomach is normal. Peritoneum:? No abnormal intraperitoneal fluid.? No free air.? ? Ventral Wall: ? No hernias.? Abdominal Nodes:? No retroperitoneal or mesenteric adenopathy by size criteria.? Vessels:? Aorta and inferior vena cava are normal in size.? ? PELVIS: Pelvic Organs:? Vertically oriented uterus.? Tiny fat containing nodule adjacent to the right ovary potentially a small dermoid.? Left ovary not convincingly identified.? No suspicious adnexal mass. Bladder:? Normal wall thickness. Pelvic Nodes: No enlarged lymph nodes.? Miscellaneous: No hernias are seen. ? ? ? Bones:? Unremarkable.? IMPRESSION:? ? 1. Short segment of acute uncomplicated diverticulitis in the distal descending colon. ? 2. Possible tiny right ovarian dermoid incidentally noted.? ? ? Dictated by: Eli Sanford M.D. on 05/26/2022 at 2:07 ? ? MDM Narrative Medical decision making narrative: 61-year-old woman with 2 days of left lower quadrant abdominal pain. Labs are reassuring and CT scan confirms a developing short segment of acute uncomplicated diverticulitis without abscess. Findings are reviewed with her questions are answered. She will be started on Augmentin for 10 days and is s afe for home discharge. She declines any additional medications at this time. Discharge Plan Departure Patient Disposition: Home Clinical Impression: Diverticulitis large intestine Qualifiers: Diverticulitis bleeding: without bleeding Diverticulitis complication: without perforation or abscess Qualified Code(s): K57.32 - Diverticulitis of large intestine without perforation or abscess without bleeding Instructions: DI for Diverticulitis Activity Restrictions/Additional Instructions: Thank you for coming in today You have acute diverticulitis without any complications. Using 400 mg of ibuprofen (2 [id number] pills) and 1 Tylenol every 6 hours can be very helpful in controlling pain. You need to complete 10 days of Augmentin, an antibiotic, to treat the infection in your colon. [facility] [place] If you find that you are getting worse or develop any new symptoms, please feel free to return to the emergency department for further evaluation. Prescriptions: New amoxicillin-pot clavulanate 875-125 mg tablet 1 tab PO BID Qty: 20 0RF No Action atorvastatin 20 mg tablet 20 mg PO BEDTIME Qty: 90 3RF lisinopril 10 mg tablet 10 mg PO DAILY Qty: 90 3RF benzonatate 100 mg capsule 100 mg PO BID-TID PRN (Reason: cough) Qty: 30 0RF multivitamin with minerals Tablet 1 tab PO DAILY Referrals: John Caraballo, [Primary Care Provider] -
[2022-05-26] MEDS: AMOXICILLIN/CLAV 875/125 MG 1 TAB PO (03:09)
[2022-05-26] MEDS: KETOROLAC 30 MG/ML VIAL 15 MG IV (03:09)
== END 2022-05-26 03:27 | disposition home or self-care (01) ==
PROVIDERS: Emergency Provider Emergency Medicine; Family Provider Family Medicine; PCP Family Medicine
DX: K57.32 Diverticulitis of large intestine without perforation or abscess without bleeding (principal)
CPT/HCPCS: 74177; 80053; 81003; 81015; 83690; 85025; 87086; 96374; 99284; J1885; Q9967

== ENCOUNTER → 2022-07-24 14:46 | Outpatient (CLI) | payer OTHER, SELFPAY ==
--- NOTE | 2022-07-24 14:47 | DI.MG.S_ITS ---
BILATERAL DIGITAL SCREENING MAMMOGRAM 3D/2D WITH CAD: 07/24/2022 CLINICAL: Routine screening. Comparison is made to exams dated: 07/21/2021 mammogram, 05/02/2020 mammogram, 03/21/2019 mammogram, 11/30/2017 mammogram, and 09/24/2016 mammogram - [facility]. There are scattered areas of fibroglandular density in both breasts (category b / 25%-50% glandular tissue). Current study was also evaluated with a Computer Aided Detection (CAD) system. No significant masses, calcifications, or other findings are seen in either breast. There has been no significant interval change. IMPRESSION: NEGATIVE There is no mammographic evidence of malignancy. A 1 year screening mammogram is recommended. Based on the Tyrer Cuzick model (a risk assessment model) the patient's lifetime risk is 7.7% and her 10 year risk is 3.1%. According to the ACR, ACS, and NCCN guidelines, an annual breast MRI exam along with mammogram is recommended if the patient's lifetime risk is 20% or greater. This exam was interpreted at Station ID: [id number]. NOTE: For mammograms, a report in lay terms will be sent to the patient. Approximately 15% of breast malignancies will not be visualized mammographically. In the management of a palpable breast mass, a negative mammogram must not discourage biopsy of a clinically suspicious lesion. Electronically Signed By: Roney lau/michelle:07/26/2022 09:56:43 letter sent: Normal Exam ACR BI-RADS Category 1: Negative 3341F
== END ==
PROVIDERS: Family Provider Family Medicine; PCP Family Medicine; Referring Provider Family Medicine; Visit Provider Family Medicine
DX: Z12.31 Encounter for screening mammogram for malignant neoplasm of breast (principal)
CPT/HCPCS: 77063; 77067

== ENCOUNTER → 2023-04-14 09:02 | Outpatient (CLI) | payer OTHER, SELFPAY ==
[2023-04-14 10:21] LABS: Add Manual Diff / Slide Review NO; Basophils Absolute Auto 0 /uL (0-100); Basophils Percent Auto 0.7 % (0-2); Eosinophils Absolute Auto 100 /uL (0-450); Eosinophils Percent Auto 1.9 % (2-4); Hematocrit 36.6 % (36-46); Hemoglobin 11.7 g/dL (12.0-16.0); Lymphocytes Absolute Auto 1700 /uL (1100-4500); Mean Corpuscular HGB Conc 31.9 % (30-36); Mean Corpuscular Hemoglobin 21.6 PG (26-34); Mean Corpuscular Volume 67.7 fL (80-100); Monocytes Absolute Auto 500 /uL (0-900); Monocytes Percent Auto 11.7 % (3-14); Neutrophils Absolute Auto 2300 /uL (1500-7000); Neutrophils Percent Auto 49.7 % (50-75); Platelet Count 344 X10^3/uL (150-400); Red Blood Cell Count 5.41 X10^6/uL (4.0-5.2); Red Cell Distribution Width 14.7 % (11.6-14.8); White Blood Cell Count 4.7 X10^3/uL (4.5-11.0)
[2023-04-14 10:44] LABS: Alanine Aminotransferase 28 IU/L (<35); Albumin 4.2 g/dL (3.5-5.0); Albumin Globulin Ratio 1.6 (1.0-2.8); Alkaline Phosphatase 87 U/L (38-126); Aspartate Aminotransferase 31 IU/L (14-36); BUN Creatinine Ratio 15.3 (6-22); Bilirubin Total 0.8 mg/dL (0.2-1.3); Blood Urea Nitrogen 9 mg/dL (7-17); Calcium 9.2 mg/dL (8.4-10.2); Carbon Dioxide 31 mmol/L (22-32); Chloride 100 mmol/L (98-107); Cholesterol 154 mg/dL (140-199); Estimated Glomerular Filt Rate > 60 mL/min (>60); Globulin 2.7 g/dL (1.7-4.1); Glucose 96 mg/dL (80-110); HDL Cholesterol 59 mg/dL (40-60); HEMOLYSIS < 15 (0-50); LDL Cholesterol Calculated 87 mg/dL (<100); Potassium 4.5 mmol/L (3.4-5.1); Sodium 138 mmol/L (137-145); Total Protein 6.9 g/dL (6.3-8.2); Triglycerides 41 mg/dL (35-150)
[2023-04-14 11:08] LABS: TSH w/ Reflex to FT4 1.16 uIU/mL (0.47-4.68)
[2023-04-14 11:47] LABS: Hypochromasia 1+; Microcytosis 1+; Ovalocytes 1+; Platelet Estimate Adequate on smear
== END ==
PROVIDERS: Family Provider Family Medicine; PCP Family Medicine; Referring Provider Family Medicine; Visit Provider Family Medicine
DX: Z00.00 Encounter for general adult medical examination without abnormal findings (principal); I10 Essential (primary) hypertension; E78.5 Hyperlipidemia, unspecified
CPT/HCPCS: 36415; 80053; 80061; 84443; 85025

== ENCOUNTER → 2023-06-22 10:11 | Outpatient (CLI) | payer OTHER, SELFPAY ==
[2023-06-22 10:59] LABS: Influenza A - CEPHEID Flu A NEGATIVE (NEGATIVE); Influenza B - CEPHEID Flu B NEGATIVE (NEGATIVE); Respiratory Syncytial Virus Negative (Negative)
[2023-06-22 11:01] LABS: COVID-19 CEPHEID 4-PLEX PCR Negative (Negative)
== END ==
PROVIDERS: Family Provider Family Medicine; PCP Family Medicine; Visit Provider Nurse Practitioner Family
DX: R05.1 Acute cough (principal)
CPT/HCPCS: 0241U

== ENCOUNTER 2023-07-13 10:33 | Emergency (ER) | payer OTHER, SELFPAY ==
[2023-07-13] VITALS (15 sets, daily range): BP systolic 154–221; BP diastolic 76–97; PULSE 56–74; RESP 13–24; TEMP 36.6–36.8; O2SAT 98–100; BMI 24.7
--- NOTE | 2023-07-13 10:51 | DI.RAD.S_ITS ---
PROCEDURE: XR CHEST 1V INDICATIONS: chest pain TECHNIQUE: One view of the chest was acquired. COMPARISON: [facility], , CHEST 2 VIEW, 07/11/2007, 17:59. FINDINGS: Surgical changes and devices: None. Lungs and pleura: Lungs are clear. No pleural effusions or pneumothorax. Mediastinum: Mediastinal contours appear normal. Heart size is normal. Bones and chest wall: No suspicious bony lesions. Overlying soft tissues appear unremarkable. IMPRESSION: Portable chest within normal limits for age. Dictated by: Janis Garcia M.D. on 07/13/2023 at 11:13 Approved by: Janis Garcia M.D. on 07/13/2023 at 11:13
[2023-07-13 11:06] LABS: Basophils Absolute Auto 0 /uL (0-100); Basophils Percent Auto 0.5 % (0-2); Eosinophils Absolute Auto 0 /uL (0-450); Eosinophils Percent Auto 0.7 % (2-4); Hematocrit 38.9 % (36-46); Hemoglobin 12.4 g/dL (12.0-16.0); Lymphocytes Absolute Auto 1600 /uL (1100-4500); Lymphocytes Percent Auto 25.2 % (25-40); Mean Corpuscular Hemoglobin 21.6 PG (26-34); Mean Corpuscular Volume 67.5 fL (80-100); Monocytes Absolute Auto 500 /uL (0-900); Monocytes Percent Auto 7.6 % (3-14); Neutrophils Absolute Auto 4300 /uL (1500-7000); Platelet Count 320 X10^3/uL (150-400); Red Blood Cell Count 5.76 X10^6/uL (4.0-5.2); Red Cell Distribution Width 15.1 % (11.6-14.8); White Blood Cell Count 6.5 X10^3/uL (4.5-11.0)
[2023-07-13 11:10] LABS: Add Manual Diff / Slide Review SLIDE REVIEW; INR 0.9 (0.9-1.3); Prothrombin Time 10.7 SECONDS (10.1-12.7)
[2023-07-13 11:13] LABS: PTT Partial Thromboplastin Tim 33 SECONDS (26-36)
[2023-07-13 11:18] LABS: Alanine Aminotransferase 27 IU/L (<35); Albumin 4.6 g/dL (3.5-5.0); Albumin Globulin Ratio 1.4 (1.0-2.8); Alkaline Phosphatase 86 U/L (38-126); Aspartate Aminotransferase 33 IU/L (14-36); BUN Creatinine Ratio 20.4 (6-22); Bilirubin Total 0.6 mg/dL (0.2-1.3); Blood Urea Nitrogen 11 mg/dL (7-17); Calcium 9.6 mg/dL (8.4-10.2); Carbon Dioxide 30 mmol/L (22-32); Chloride 99 mmol/L (98-107); Creatine Kinase 104 U/L (30-135); Estimated Glomerular Filt Rate > 60 mL/min (>60); Globulin 3.2 g/dL (1.7-4.1); Glucose 160 mg/dL (80-110); HEMOLYSIS < 15 (0-50); Lipase 192 U/L (23-300); Magnesium 2.1 mg/dL (1.6-2.3); Potassium 3.7 mmol/L (3.4-5.1); Sodium 136 mmol/L (137-145); Total Protein 7.8 g/dL (6.3-8.2)
[2023-07-13 11:29] LABS: Troponin I < 0.012 ng/mL (0.01-0.034)
--- NOTE | 2023-07-13 11:39 | ED.DIZZY ---
HPI - Dizziness General Chief Complaint: Dizziness Stated Complaint: sent from DR dianne morrell/Rule out stroke Time Seen by Provider: 07/13/23 11:15 Source: patient Mode of arrival: Wheelchair History of Present Illness HPI Narrative: Patient here for continuous dizziness since 4:00 a.m. in the morning yesterday. She went to bed Tuesday night with any complaints or dizziness. She is been dizzy since then. Does not feel like she is spinning or things around her are spinning. Nauseous but no vomiting. Does get dizzy with head changes or position changes. Denies any recent illness. No nausea or vomiting or diarrhea. No fluid loss or dietary restrictions. Denies any palpitations chest pain. No headache. No numbness tingling or weakness to the limbs. No slurred speech or facial droop. Fast exam otherwise negative Related Data Home Medications Medication Instructions Recorded Confirmed multivitamin with minerals 1 tab PO DAILY 06/29/21 07/13/23 Previous Rx's Medication Instructions Recorded lisinopril 10 mg tablet 10 mg PO DAILY #90 tabs 01/27/23 atorvastatin 20 mg tablet 20 mg PO BEDTIME #90 tabs 03/01/23 meclizine 25 mg tablet 25 mg PO QID PRN dizziness #20 tabs 07/13/23 Allergies Allergy/AdvReac Type Severity Reaction Status Date / Time No Known Drug Allergies Allergy Verified 07/13/23 11:31 Review of Systems Review of Systems Narrative: GENERAL: negative chills, fatigue, malaise, fever, sweats. HEENT: negative sinus pain, ear pain, sore throat RESPIRATORY: negative dyspnea, cough CARDIOVASCULAR: negative chest pain, palpitations GASTROINTESTINAL: negative nausea, vomiting, abdominal pain : negative dysuria, frequency, hematuria MUSCULOSKELETAL: negative muscle or bony pain SKIN: negative rash, skin lesions NEUROLOGIC: negative weakness, numbness, positive dizziness ROS Unobtainable: All systems reviewed & are unremarkable except as noted in HPI and below Patient History Medical History Well adult on routine health check Diverticulitis COVID-19 Preventative health care Hypertension Elevated blood pressure reading without diagnosis of hypertension Adhesive capsulitis Rectal bleeding Internal hemorrhoid, bleeding Bicipital tendinitis of left shoulder Hyperlipidemia Alpha thalassemia trait Hyperlipidemia History of endometrial biopsy (2014) Surgical History Status post left rotator cuff repair Anesthesia Status post delivery Family History Brother No problems noted. Brother No problems noted. Father COPD (chronic obstructive pulmonary disease) Mother Leukemia Social History household members: family and children Smoking Status: Never smoker alcohol intake: never substance use type: does not use Smoking Status: Never smoker alcohol intake frequency: other Substance Use Type: does not use Exam Narrative Exam Narrative: GENERAL: in no distress, not toxic not dyspneic HEAD: Normocephalic. EYES: Pupils equal round ENT: Mucous membranes moist. NECK: Trachea midline. CARDIOVASCULAR: Regular rate and rhythm RESPIRATORY: Clear to auscultation. Breath sounds equal bilaterally. No wheezes, rales, or rhonchi. GASTROINTESTINAL: Abdomen soft, non-tender EXTREMITIES: No gross deformities. BACK: No flank tenderness. NEURO: AOx4. Clear speech no facial droop slow but steady gait, at times needs assist, no foot drop. ?Light touch intact to bilateral face hands and feet. ?Strong equal guest service host bilaterally and ankle flexion hip flexion and knee flexion. ?Strong bilateral patellar reflexes. ?Steady Romberg, negative pronator drift, [id number] and nnvi-[id number] intact bilaterally SKIN: Warm and dry PSYCH: Not anxious, is cooperative Initial Vital Signs Initial Vital Signs: Vital Signs Temperature 98 F 07/13/23 10:39 Pulse Rate 68 07/13/23 10:39 Respiratory Rate 18 07/13/23 10:39 Blood Pressure 221/97 H 07/13/23 10:39 Pulse Oximetry 100 07/13/23 10:39 Oxygen Delivery Method Room Air 07/13/23 10:39 Scores NIH Stroke Scale Level of Conciousness: Alert, keenly responsive Ask month/age: Answers both questions correctly. Open/close eyes, close hand: Performs both tasks correctly Best gaze horizontal: Normal Visual so: No visual loss Facial palsy: Normal symetrical movement Left arm drift: No drift for full 10 sec Right arm drift: No drift for full 10 sec Left leg drift: No drift for full 5 sec Right leg drift: No drift for full 5 sec Limb ataxia: Absent Sensory on face/arms/legs: Normal, no sensory loss Best language: No aphasia, normal Dysarthria: Normal Extinction or inattention: No abnormality Total NIH Stroke scale score: 0 Course Orders Ordered: ED Orders 07/13/23 10:51 XR chest 1V Stat EKG-12 Lead Stat 07/13/23 10:52 Complete Blood Count AUTO DIFF Stat Comprehensive Metabolic Panel Stat Lipase Stat Magnesium Stat PTT Partial Thromboplastin Mukul Stat Prothrombin Time INR Stat Troponin & CK Cardiac Panel Stat 07/13/23 11:39 CT angio head and neck Stat CT head/brain wo con Stat 07/13/23 12:35 COVID19 -Nasal RAPID Stat 07/13/23 14:12 US carotid doppler BI Stat Discontinued Medications Sodium Chloride (Normal Saline 0.9%) 500 mls @ 1,000 mls/hr IV BOLUS ONE Stop: 07/13/23 12:08 Last Infusion: 07/13/23 13:14 Dose: Infused Documented By: Admin: 07/13/23 12:14 Dose: 1,000 mls/hr Documented By: GIRISH Lisinopril (Lisinopril 20 Mg Tablet) 20 mg PO NOW ONE Stop: 07/13/23 11:39 Last Admin: 07/13/23 12:20 Dose: 20 mg Documented By: GIRISH Meclizine HCl (Meclizine Hcl 12.5 Mg Tablet) 25 mg PO NOW ONE Stop: 07/13/23 11:39 Last Admin: 07/13/23 12:13 Dose: 25 mg Documented By: GIRISH Vital Signs Vital signs: Vital Signs - 8 hr 07/13/23 10:39 07/13/23 10:52 07/13/23 10:55 Temperature 98 F Pulse Rate 68 65 Respiratory Rate 18 Blood Pressure 221/97 H 196/93 H Pulse Oximetry 100 100 Oxygen Delivery Method Room Air 07/13/23 10:55 07/13/23 11:00 07/13/23 11:00 Temperature Pulse Rate 66 63 Respiratory Rate 17 14 Blood Pressure 193/85 H Pulse Oximetry 100 100 Oxygen Delivery Method 07/13/23 11:30 07/13/23 11:31 07/13/23 11:31 Temperature Pulse Rate 64 62 Respiratory Rate 16 13 Blood Pressure 202/85 H Pulse Oximetry 99 99 Oxygen Delivery Method 07/13/23 12:03 07/13/23 12:04 07/13/23 12:04 Temperature Pulse Rate 74 69 Respiratory Rate 24 19 Blood Pressure 210/91 H Pulse Oximetry 99 100 Oxygen Delivery Method 07/13/23 12:20 07/13/23 12:30 07/13/23 12:31 Temperature Pulse Rate 67 66 Respiratory Rate 15 Blood Pressure 210/91 H 168/77 H Pulse Oximetry 100 Oxygen Delivery Method 07/13/23 12:31 07/13/23 13:00 07/13/23 13:00 Temperature 98.2 F Pulse Rate 63 56 L Respiratory Rate 13 18 Blood Pressure 175/81 H Pulse Oximetry 100 100 Oxygen Delivery Method Room Air 07/13/23 13:30 07/13/23 13:30 07/13/23 13:44 Temperature Pulse Rate 69 66 Respiratory Rate 16 20 Blood Pressure 154/76 H Pulse Oximetry 99 98 Oxygen Delivery Method 07/13/23 14:05 Temperature Pulse Rate Respiratory Rate Blood Pressure 178/81 H Pulse Oximetry Oxygen Delivery Method MDM - Dizziness Lab Data 07/13/23 10:52 07/13/23 10:52 Labs: Lab Results 07/13/23 07/13/23 Range/Units 10:52 12:35 WBC 6.5 (4.5-11.0) X10^3/uL RBC 5.76 H (4.0-5.2) X10^6/uL Hgb 12.4 (12.0-16.0) g/dL Hct 38.9 (36-46) % MCV 67.5 L (80-100) fL MCH 21.6 L (26-34) PG MCHC 32.0 (30-36) % RDW 15.1 H (11.6-14.8) % Plt Count 320 (150-400) X10^3/uL Neut % (Auto) 66.0 (50-75) % Lymph % (Auto) 25.2 (25-40) % [place] % (Auto) 7.6 (3-14) % Eos % (Auto) 0.7 L (2-4) % Baso % (Auto) 0.5 (0-2) % Neut # (Auto) 4300 (2562-2390) /uL Lymph # (Auto) 1600 (7323-2118) /uL [place]ah # (Auto) 500 (0-900) /uL Eos # (Auto) 0 (0-450) /uL Baso # (Auto) 0 (0-100) /uL RBC Morphology See below Microcytosis 1+ H PT 10.7 (10.1-12.7) SECONDS INR 0.9 (0.9-1.3) APTT 33 (26-36) SECONDS Sodium 136 L (137-145) mmol/L Potassium 3.7 (3.4-5.1) mmol/L Chloride 99 (98-107) mmol/L Carbon Dioxide 30 (22-32) mmol/L BUN 11 (7-17) mg/dL Creatinine 0.54 (0.52-1.04) mg/dL Estimated GFR > 60 (>60) mL/min BUN/Creatinine Ratio 20.4 (6-22) Glucose 160 H (80-110) mg/dL Calcium 9.6 (8.4-10.2) mg/dL Magnesium 2.1 (1.6-2.3) mg/dL Total Bilirubin 0.6 (0.2-1.3) mg/dL AST 33 (14-36) IU/L ALT 27 (<35) IU/L Alkaline Phosphatase 86 (38-126) U/L Total Creatine Kinase 104 (30-135) U/L Troponin I < 0.012 (0.01-0.034) ng/mL Total Protein 7.8 (6.3-8.2) g/dL Albumin 4.6 (3.5-5.0) g/dL Globulin 3.2 (1.7-4.1) g/dL Albumin/Globulin Ratio 1.4 (1.0-2.8) Lipase 192 (23-300) U/L SARS-CoV-2 (PCR) Negative (Negative) Urine Dip Bedside Urine Glucose Negative Bedside Urine Bilirubin - Negative Bedside Urine Ketone - Negative Urine Specific [place] 1.010 Bedside Urine Occult Blood - Negative Bedside Urine pH 7.0 Bedside Urine Protein - Negative Bedside Urine Urobilinogen - Negative Bedside Urine Nitrite - Negative Bedside Urine Leukocytes - Negative Esterase Imaging Data CTA - brain/neck: Radiologist's Impression: [address] [address] [address] Scan Report Signed Patient: Thu Reyes MR#: [id number] : 1960 Acct:[id number] Age/Sex: 62 / F Date of Service: 07/13/23 Loc: ED Accession Number: [id number] Procedure: CT angio head and neck Ordering Provider: Kristopher Tariq MD PROCEDURE: CT ANGIO HEAD AND NECK INDICATIONS: dizzy TECHNIQUE: After the administration of intravenous contrast, 1 mm thick sections acquired from the aortic arch through the [place] of [place]. 3-dimensional twsqbki-snzhttaai-sogzubikmy (MIP) and/or volume rendering reformats were acquired of the central intracranial vasculature and neck separately. For radiation dose reduction, the following was used: automated exposure control, adjustment of mA and/or kV according to patient size. COMPARISON: None. FINDINGS: Image quality: Diagnostic. BRAIN: CSF spaces: Ventricles are normal in size and shape. Basal cisterns are patent. No extra-axial fluid collections. Brain: No significant abnormality of the brain can be seen. Skull and face: Calvarium and facial bones appear intact, without suspicious lesions. Orbits appear normal. Sinuses: Sinuses and mastoids are clear. HEAD CT ANGIOGRAPHY: Anterior circulation: Intracranial internal carotid arteries are normal in size and flow. The flow within the paired anterior cerebral arteries is normal and symmetric. The flow within the middle cerebral arteries is normal and symmetric. The anterior communicating artery is seen. No aneurysms are seen. Posterior circulation: There is a left vertebral artery dominance. Visualized portions of the vertebral arteries demonstrate normal caliber, and join to form a normal appearing basilar artery. Flow within the posterior cerebral arteries is normal and symmetric. No aneurysms are seen. NECK CT ANGIOGRAPHY: Carotid system: The great vessels demonstrate a conventional anatomy as they arise from the aortic arch. The origins of the common carotid arteries appear patent. The common carotid arteries demonstrate normal caliber and courses. The bifurcation regions are both widely patent. The internal carotid arteries demonstrate normal calibers and courses. There is an ill-defined intraluminal focus of decreased attenuation in the proximal left internal carotid artery measuring approximately 4-5 mm on series 2, image 55. Posterior circulation: The origins of the vertebral arteries both appear widely patent. The more superior extracranial portions of both vertebral arteries also demonstrate normal courses and calibers. They join to form a normal appearing basilar artery. Soft tissues: Heterogeneously enhancing foci with low attenuation are present within the thyroid gland bilaterally. Bones: No suspicious bony lesions. Visualized cervical spine appears normally aligned. IMPRESSION: 1. No acute intracranial process. 2. No areas of hemodynamically significant stenosis, vascular occlusion or aneurysmal dilation within the anterior circulation. 3. No areas of hemodynamically significant stenosis, vascular occlusion or aneurysmal dilation within the posterior circulation. 4. There is a faint area of decreased attenuation within the proximal internal carotid artery lumen on the left as described above. While this could represent artifact from contrast opacification, small focus of thrombus cannot be definitively excluded. Carotid ultrasound may be helpful for further evaluation. 5. Heterogeneous appearance of thyroid. On a nonemergent basis, thyroid ultrasound is recommended for further evaluation. Any quantitative measurements of stenosis were performed using NASCET criteria. Dictated by: Janis Garcia M.D. on 07/13/2023 at 12:16 Approved by: Janis Garcia M.D. on 07/13/2023 at 12:24 CT scan - head: Radiologist's Impression: [address] [address] [address] Scan Report Signed Patient: Thu Reyes MR#: [id number] : 1960 Acct:[id number] Age/Sex: 62 / F Date of Service: 07/13/23 Loc: ED Accession Number: [id number] Procedure: CT head/brain wo con Ordering Provider: Kristopher Tariq MD PROCEDURE: CT HEAD/BRAIN WO CON INDICATIONS: dizzy TECHNIQUE: Noncontrast 4.5 mm thick angled axial sections acquired from the foramen magnum to the vertex, with coronal and sagittal reformats. For radiation dose reduction, the following was used: automated exposure control, adjustment of mA and/or kV according to patient size. COMPARISON: [facility], CT, CT ANGIO HEAD AND NECK, 07/13/2023, 11:52. FINDINGS: Image quality: Excellent. CSF spaces: Basal cisterns are patent. No extra-axial fluid collections. Ventricles are normal in size and shape. Brain: No midline shift. No intracranial masses or hemorrhage. Gandhi-white matter interface is normal. Skull and face: Calvarium and visualized facial bones are intact, without suspicious lesions. Sinuses: Visualized sinuses and mastoids are clear. IMPRESSION: 1. No acute intracranial process. Dictated by: Janis Garcia M.D. on 07/13/2023 at 12:15 Approved by: Janis Garcia M.D. on 07/13/2023 at 12:16 Chest x-ray: Radiologist's Impression: [address] [address] XRay Report Signed Patient: Thu Reyes MR#: [id number] : 1960 Acct:[id number] Age/Sex: 62 / F Date of Service: 07/13/23 Loc: ED Accession Number: [id number] Procedure: XR chest 1V Ordering Provider: Kristopher Tariq MD PROCEDURE: XR CHEST 1V INDICATIONS: chest pain TECHNIQUE: One view of the chest was acquired. COMPARISON: [facility], CR, CHEST 2 VIEW, 07/11/2007, 17:59. FINDINGS: Surgical changes and devices: None. Lungs and pleura: Lungs are clear. No pleural effusions or pneumothorax. Mediastinum: Mediastinal contours appear normal. Heart size is normal. Bones and chest wall: No suspicious bony lesions. Overlying soft tissues appear unremarkable. IMPRESSION: Portable chest within normal limits for age. Dictated by: Janis Garcia M.D. on 07/13/2023 at 11:13 Approved by: Janis Garcia M.D. on 07/13/2023 at 11:13 Carotid ultrasound: Radiologist's Impression: [address] [address] Ultrasound Report Signed Patient: Tuh Reyes MR#: [id number] : 1960 Acct:[id number] Age/Sex: 62 / F Date of Service: 07/13/23 Loc: ED Accession Number: [id number] Procedure: US carotid doppler BI Ordering Provider: Kristopher Tariq MD PROCEDURE: US CAROTID DOPPLER BI INDICATIONS: Dizziness TECHNIQUE: Color and pulse Doppler interrogation was performed of both carotid systems, with image documentation and velocity measurements. COMPARISON: [facility], CT, CT ANGIO HEAD AND NECK, 07/13/2023, 11:52. FINDINGS: Stenosis calculations are based on SRU (Society of Radiologists in Ultrasound) criteria. Right side: Brachial blood pressure: 148/74 mm Hg. Common carotid artery peak systolic velocity: 95 cm/sec. Internal carotid artery peak systolic velocity: 90 cm/sec. Internal carotid artery end diastolic velocity: 33 cm/sec. External carotid artery peak systolic velocity: 112 cm/sec. ICA/CCA peak systolic ratio: 0.95 . Gandhi scale imaging description: Mild plaque at the bifurcation Percent internal carotid artery stenosis: Less than 50% Vertebral artery: Flow direction is antegrade. Left side: Brachial blood pressure: 162/77 mm Hg. Common carotid artery peak systolic velocity: 90 cm/sec. Internal carotid artery peak systolic velocity: 89 cm/sec. Internal carotid artery end diastolic velocity: 31 cm/sec. External carotid artery peak systolic velocity: 83 cm/sec. ICA/CCA peak systolic ratio: 0.99 . Gandhi scale imaging description: Mild plaque at the bifurcation Percent internal carotid artery stenosis: Less than 50% . Vertebral artery: Flow direction is antegrade. IMPRESSION: Less than 50% stenosis of the internal carotid arteries bilaterally. No intraluminal thrombus or similar appearance to correlate to finding on CTA exam. Dictated by: Janis Garcia M.D. on 07/13/2023 at 15:38 Approved by: Janis Garcia M.D. on 07/13/2023 at 15:39 [facility] Narrative Medical decision making narrative: Patient here for continuous dizziness since 4:00 a.m. in the morning yesterday. She went to bed Tuesday night with any complaints or dizziness. She is been dizzy since then. Does not feel like she is spinning or things around her are spinning. Nauseous but no vomiting. Does get dizzy with head changes or position changes. Denies any recent illness. No nausea or vomiting or diarrhea. No fluid loss or dietary restrictions. Denies any palpitations chest pain. No headache. No numbness tingling or weakness to the limbs. No slurred speech or facial droop. Fast exam otherwise negative After history and exam CBC CMP troponin EKG CT head CT angiogram head and neck normal saline meclizine [facility] CC: Dizziness Complicating co-morbidities: Hypertension Data collected from: Patient Medical records reviewed: No recent visit for this complaint Differential considered: Includes but not limited to stroke TIA arrhythmia anemia vertigo dehydration hypertensive urgency Exam documented above, pertinent findings include: Slow but steady gait., hypertension Lab Test results independently reviewed as above. Pertinent findings: WBC 6.5 hemoglobin 12.4 sodium 136 potassium 3.7 bicarb 30 creatinine 0.54 GFR greater than 60 glucose 160 troponin less than 0.012 Independently reviewed EKG normal sinus rhythm rate [address] elevation or depression. Imaging studies independently reviewed: CT head CT angiogram head and neck no acute finding, possibly need carotid ultrasound Carotid ultrasounds no acute findings Consultations: None indicated this time Treatments: Normal saline meclizine Re-evaluations: 2:00 p.m.. Blood pressure 154/76. Patient feeling much better. She states her dizziness was a 10/10 when she arrived. After meclizine she is a 3/10. She is up and walking steady self gait no ataxia. Not requiring slow gait. Daughter at bedside. She states she looks a lot better. No headache. Reviewed with her results and exams. She will likely need to increase her lisinopril to twice a day. She will call her family doctor today to make appointment for follow up. Return precautions reviewed. Not toxic at discharge. Prescription for Antivert provided. They desire discharge home. Return precautions reviewed with them Discussion: Appropriate for discharge home exam and laboratory studies and imaging are reassuring. Patient had significant improvement with Antivert. Likely vertigo. Blood pressure improved at time of discharge. Return precautions reviewed with patient. Not toxic at discharge. Prescription for Antivert provided. Patient will take lisinopril twice a day until primary care office time. Patient and family agree with treatment plan Diagnosis: Vertigo Discharge Plan Departure Patient Disposition: Home Clinical Impression: Vertigo Instructions: DI for Vertigo Activity Restrictions/Additional Instructions: Please see your family doctor for re-evaluation of your blood pressure. Please monitor your blood pressure daily at home. You may need to take your lisinopril 10 mg once in the morning and once at night. Please call your family doctor today for re-evaluation within a week. Prescription medication for dizziness has been sent to your [facility] to [facility] today. You may be developing vertigo. Today's laboratory studies EKG and CT scan imaging are reassuring regarding your dizziness. Return if worse if any questions or concerns. Prescriptions: New meclizine 25 mg tablet 25 mg PO QID PRN (Reason: dizziness) Qty: 20 0RF No Action lisinopril 10 mg tablet 10 mg PO DAILY Qty: 90 3RF atorvastatin 20 mg tablet 20 mg PO BEDTIME Qty: 90 3RF multivitamin with minerals Tablet 1 tab PO DAILY Referrals: John Caraballo, [Primary Care Provider] - Stand Alone Forms: Patient Portal/API, Work Release Note
[2023-07-13 11:42] LABS: Microcytosis 1+
[2023-07-13] MEDS: MECLIZINE HCL 12.5 MG TABLET 25 MG PO (12:13)
[2023-07-13] MEDS: SODIUM CHLORIDE 0.9% 500 ML 1000 ML IV (12:14)
[2023-07-13] MEDS: lisinopriL 20 MG TABLET PO (12:20)
[2023-07-13 13:00] LABS: COVID19 -Nasal RAPID Negative (Negative)
--- NOTE | 2023-07-13 13:20 | PC.NURSE ---
pt states she is feeling better after medications. she is not dizzy when she is laying flat and holding still but she does still get dizzy when she gets up to use the bathroom. Informed provider of these details.
--- NOTE | 2023-07-13 13:47 | PC.NURSE ---
pt up to bathroom with minimal assist from nurse. patient states the dizziness when she is walking does feel less than before.
--- NOTE | 2023-07-13 14:12 | DI.US.S_ITS ---
PROCEDURE: US CAROTID DOPPLER BI INDICATIONS: Dizziness TECHNIQUE: Color and pulse Doppler interrogation was performed of both carotid systems, with image documentation and velocity measurements. COMPARISON: [facility], CT, CT ANGIO HEAD AND NECK, 07/13/2023, 11:52. FINDINGS: Stenosis calculations are based on SRU (Society of Radiologists in Ultrasound) criteria. Right side: Brachial blood pressure: 148/74 mm Hg. Common carotid artery peak systolic velocity: 95 cm/sec. Internal carotid artery peak systolic velocity: 90 cm/sec. Internal carotid artery end diastolic velocity: 33 cm/sec. External carotid artery peak systolic velocity: 112 cm/sec. ICA/CCA peak systolic ratio: 0.95 . Gandhi scale imaging description: Mild plaque at the bifurcation Percent internal carotid artery stenosis: Less than 50% Vertebral artery: Flow direction is antegrade. Left side: Brachial blood pressure: 162/77 mm Hg. Common carotid artery peak systolic velocity: 90 cm/sec. Internal carotid artery peak systolic velocity: 89 cm/sec. Internal carotid artery end diastolic velocity: 31 cm/sec. External carotid artery peak systolic velocity: 83 cm/sec. ICA/CCA peak systolic ratio: 0.99 . Gandhi scale imaging description: Mild plaque at the bifurcation Percent internal carotid artery stenosis: Less than 50% . Vertebral artery: Flow direction is antegrade. IMPRESSION: Less than 50% stenosis of the internal carotid arteries bilaterally. No intraluminal thrombus or similar appearance to correlate to finding on CTA exam. Dictated by: Janis Garcia M.D. on 07/13/2023 at 15:38 Approved by: Janis Garcia M.D. on 07/13/2023 at 15:39
== END 2023-07-13 16:10 | disposition home or self-care (01) ==
PROVIDERS: Emergency Provider Emergency Medicine; Family Provider Family Medicine; PCP Family Medicine
DX: R42 Dizziness and giddiness (principal); R07.9 Chest pain, unspecified; Z20.822 Contact with and (suspected) exposure to COVID-19
CPT/HCPCS: 36415; 70450; 70496; 70498; 71045; 80053; 81003; 82550; 83690; 83735; 84484; 85025; 85610; 85730; 87635; 93005; 93880; 96360; 99284; 99285; C9803

== ENCOUNTER → 2023-08-06 12:23 | Outpatient (CLI) | payer OTHER, SELFPAY ==
--- NOTE | 2023-08-06 | DI.MG.S_ITS ---
BILATERAL DIGITAL SCREENING MAMMOGRAM 3D/2D WITH CAD: 08/06/2023 CLINICAL: Routine screening. Comparison is made to exams dated: 07/24/2022 mammogram, 07/21/2021 mammogram, 05/30/2020 mammogram, and 05/02/2020 mammogram - [facility]. There are scattered areas of fibroglandular density in both breasts (category b / 25%-50% glandular tissue). Current study was also evaluated with a Computer Aided Detection (CAD) system. No significant masses, calcifications, or other findings are seen in either breast. There has been no significant interval change. IMPRESSION: NEGATIVE There is no mammographic evidence of malignancy. A 1 year screening mammogram is recommended. Based on the Tyrer Cuzick model (a risk assessment model) the patient's lifetime risk is 7.6% and her 10 year risk is 3.1%. According to the ACR, ACS, and NCCN guidelines, an annual breast MRI exam along with mammogram is recommended if the patient's lifetime risk is 20% or greater. This exam was interpreted at Station ID: [id number]. NOTE: For mammograms, a report in lay terms will be sent to the patient. Approximately 15% of breast malignancies will not be visualized mammographically. In the management of a palpable breast mass, a negative mammogram must not discourage biopsy of a clinically suspicious lesion. Electronically Signed By: Bebe [email or web address]:08/08/2023 17:31:15 letter sent: Normal Exam ACR BI-RADS Category 1: Negative 3341F
== END ==
PROVIDERS: Family Provider Family Medicine; PCP Family Medicine; Referring Provider Family Medicine; Visit Provider Family Medicine
DX: Z12.31 Encounter for screening mammogram for malignant neoplasm of breast (principal)
CPT/HCPCS: 77063; 77067

== ENCOUNTER → 2024-06-25 08:30 | Outpatient (CLI) | payer OTHER, SELFPAY ==
[2024-06-25 10:31] LABS: Alanine Aminotransferase 18 IU/L (<35); Albumin 4.2 g/dL (3.5-5.0); Albumin Globulin Ratio 1.7 (1.0-2.8); Alkaline Phosphatase 84 U/L (38-126); Aspartate Aminotransferase 28 IU/L (14-36); BUN Creatinine Ratio 16.1 (6-22); Bilirubin Total 0.6 mg/dL (0.2-1.3); Blood Urea Nitrogen 10 mg/dL (7-17); Calcium 9.5 mg/dL (8.4-10.2); Carbon Dioxide 28 mmol/L (22-32); Chloride 102 mmol/L (98-107); Cholesterol 134 mg/dL (140-199); Estimated Glomerular Filt Rate > 60 mL/min (>60); Globulin 2.5 g/dL (1.7-4.1); Glucose 99 mg/dL (80-110); HDL Cholesterol 60 mg/dL (40-60); HEMOLYSIS < 15 (0-50); LDL Cholesterol Calculated 68 mg/dL (<100); Potassium 4.5 mmol/L (3.4-5.1); Sodium 136 mmol/L (137-145); Total Protein 6.7 g/dL (6.3-8.2); Triglycerides 31 mg/dL (35-150)
[2024-06-25 10:59] LABS: TSH w/ Reflex to FT4 0.96 uIU/mL (0.47-4.68)
== END ==
PROVIDERS: Family Provider Family Medicine; PCP Family Medicine; Referring Provider Family Medicine; Visit Provider Family Medicine
DX: Z00.00 Encounter for general adult medical examination without abnormal findings (principal); R73.9 Hyperglycemia, unspecified; I10 Essential (primary) hypertension; E78.5 Hyperlipidemia, unspecified
CPT/HCPCS: 36415; 80053; 80061; 83036; 84443

== ENCOUNTER → 2024-08-11 08:39 | Outpatient (CLI) | payer OTHER, SELFPAY ==
--- NOTE | 2024-08-11 08:40 | DI.MG.S_ITS ---
BILATERAL DIGITAL SCREENING MAMMOGRAM 3D/2D WITH CAD: 08/11/2024 CLINICAL: Routine screening. Comparison is made to exams dated: 08/06/2023 mammogram, 07/24/2022 mammogram, and 07/21/2021 mammogram - [facility]. There are scattered areas of fibroglandular density (category b / 25%-50% glandular tissue). Current study was also evaluated with a Computer Aided Detection (CAD) system. There are multiple round and oval masses with circumscribed margins seen in both breasts. No other significant masses, calcifications, or other findings are seen in either breast. IMPRESSION: BENIGN There are multiple, bilateral, round and oval benign appearing masses. No mammographic evidence of malignancy. A 1 year screening mammogram is recommended. Based on the Tyrer Cuzick model (a risk assessment model) the patient's lifetime risk is 7.3% and her 10 year risk is 3.2%. According to the ACR, ACS, and NCCN guidelines, an annual breast MRI exam along with mammogram is recommended if the patient's lifetime risk is 20% or greater. This exam was interpreted at Station ID: [id number]. NOTE: For mammograms, a report in lay terms will be sent to the patient. Approximately 15% of breast malignancies will not be visualized mammographically. In the management of a palpable breast mass, a negative mammogram must not discourage biopsy of a clinically suspicious lesion. Electronically Signed By: Camelia Ortiz M.D., Ph.D. eb/:08/16/2024 12:01:27 letter sent: Normal Exam ACR BI-RADS Category 2: Benign
== END ==
LOC: MAMMO 08:39
PROVIDERS: Family Provider Family Medicine; PCP Family Medicine; Referring Provider Family Medicine; Visit Provider Family Medicine
DX: Z12.31 Encounter for screening mammogram for malignant neoplasm of breast (principal); N63.20 Unspecified lump in the left breast, unspecified quadrant; N63.10 Unspecified lump in the right breast, unspecified quadrant
CPT/HCPCS: 77063; 77067

== ENCOUNTER → 2025-08-22 09:25 | Outpatient (ROUT) | payer OTHER, SELFPAY ==
[2025-08-22 10:06] LABS: Influenza A - CEPHEID Flu A NEGATIVE (NEGATIVE); Influenza B - CEPHEID Flu B NEGATIVE (NEGATIVE)
[2025-08-22 10:13] LABS: COVID-19 CEPHEID 4-PLEX PCR Negative (Negative)
== END ==
LOC: LAB 09:26
PROVIDERS: Family Provider Family Medicine; PCP Family Medicine; Visit Provider Family Medicine
DX: R05.1 Acute cough (principal)
CPT/HCPCS: 87637